=== PATIENT | male | born 1960 | race African-American/Black ===

== ENCOUNTER 2016-10-03 14:13 | Observation (INO) | payer MEDICARE, BC ==
--- NOTE | 2016-10-03 14:55 | ER Document Report ---
ED Cardiac - General Mode of Arrival: Medic Information source: Patient, Emergency Med Personnel, [facility] Records TRAVEL OUTSIDE OF THE [place] IN LAST 30 DAYS: No - HPI Patient complains to provider of: Other - chest pressure Quality of pain: Pressure Chest pain precipitating factors: At Rest Associated symptoms: None Exacerbated by: Denies Relieved by: Nothing Similar symptoms previously: Yes <LAKISHA OCHOA - Last Filed: 10/03/16 16:04> <MARY ANNE SOTELO - Last Filed: 10/03/16 18:03> - General Stated Complaint: CHEST PAIN Notes: Patient is a 55-year-old male that presents to the emergency department today with complaints of 2 days of chest pressure. Patient states he feels like someone is sitting on his chest. Patient states there is no real pain however it is just enough to "make him nervous". Patient has been seen in this emergency department before for similar complaints, with the last time being constipation. Patient states he is constipated currently, his last bowel movement was 1.5 weeks ago. (LAKISHA OCHOA) - Related Data Allergies/Adverse Reactions: No Known Drug Allergies Allergy (Unknown, Verified 01/14/16 13:24) Past Medical History - General Information source: Patient, [facility] Records - Social History Smoking Status: Never Smoker Cigarette use (# per day): No Frequency of alcohol use: None Drug Abuse: None Family History: Reviewed & Not Pertinent - Past Medical History Cardiac Medical History: Reports: Hx Atrial Fibrillation, Hx Coronary Artery Disease, Hx Heart Attack, Hx Hypercholesterolemia, Hx Hypertension, Hx Pulmonary Embolism Pulmonary Medical History: Reports: Hx Bronchitis Neurological Medical History: Reports: Hx Cerebrovascular Accident Endocrine Medical History: Reports: Hx Diabetes Mellitus Type 2 Musculoskeltal Medical History: Reports Hx Muscle Weakness Psychiatric Medical History: Reports: Hx Anxiety, Hx Depression Past Surgical History: Reports: Hx Internal Defibrillator, Hx Pacemaker - Immunizations Hx Diphtheria, Pertussis, Tetanus Vaccination: - unknown <LAKISHA OCHAO - Last Filed: 10/03/16 16:04> Review of Systems - Review of Systems Constitutional: No symptoms reported EENT: No symptoms reported Cardiovascular: See HPI, Chest pain Respiratory: No symptoms reported Gastrointestinal: See HPI, Constipation Genitourinary: No symptoms reported Male Genitourinary: No symptoms reported Musculoskeletal: No symptoms reported Skin: No symptoms reported Hematologic/Lymphatic: No symptoms reported Neurological/Psychological: See HPI, Anxiety -: Yes All other systems reviewed and negative <LAKISHA OCHOA - Last Filed: 10/03/16 16:04> Physical Exam - General General appearance: Alert In distress: None - HEENT Head: Normocephalic, Atraumatic Eyes: Normal Conjunctiva: Normal - Respiratory Chest status: Nontender Breath sounds: Normal Chest palpation: Other - port in right upper chest - Cardiovascular Rhythm: Regular Heart sounds: Normal auscultation Murmur: No - Abdominal Inspection: Obese Bowel sounds: Hyperactive Tenderness: Nontender - Extremities General upper extremity: Other - contractures to hands and wrists General lower extremity: Other - Thickened and discolored toenails bilaterally - Neurological Cognition: Normal Speech: Other - slow deliberate speech at baseline Motor strength normal: No: LUE, RUE, LLE, RLE - Psychological Associated symptoms: Normal affect, Normal mood - Skin Skin Temperature: Warm Skin Moisture: Dry Skin Color: Normal <LAKISHA OCHOA - Last Filed: 10/03/16 16:04> <MARY ANNE SOTELO - Last Filed: 10/03/16 18:03> - Vital signs Vitals: Resp Pulse Ox 16 99 10/03/16 15:27 10/03/16 15:27 (MARY ANNE SOTELO) - Neurological Notes: Quadriplegic at baseline, some digit movement which is baseline for patient. ( LAKISHA OCHOA) Course - Laboratory Result Diagrams: 10/03/16 15:20 10/03/16 15:20 <LAKISHA OCHOA - Last Filed: 10/03/16 16:04> - Laboratory Result Diagrams: 10/03/16 15:20 10/03/16 15:20 - Diagnostic Test Radiology reviewed: Image reviewed, Reports reviewed - Constipation - EKG Interpretation by Pr EKG shows normal: Sinus rhythm, Silvis, Intervals, QRS Complexes. abnormal: ST-T Waves - Diffuse abnormal T waves suggesting ischemia Rate: Normal - 54 Rhythm: NSR When compared to previous EKG there are: No significant change - Consults Dr. Agudelo Time consulted: 18:00 Consulted provider: will see as inpatient <MARY ANNE SOTELO - Last Filed: 10/03/16 18:03> - Vital Signs Vital signs: Temp Pulse Resp BP Pulse Ox 10 L 202/83 H 99 10/03/16 17:03 10/03/16 17:03 10/03/16 15:28 (MARY ANNE SOTELO) - Laboratory Laboratory results interpreted by me: 10/03/16 10/03/16 10/03/16 15:20 15:20 17:00 Hgb 11.0 L Hct 34.6 L MCV 79 L MCH 25.1 L MCHC 31.6 L Basophils % 2.2 H ALT 11 L Urine Protein 30 H Urine Nitrite POSITIVE H Ur Leukocyte Esterase LARGE H (MARY ANNE SOTELO) Discharge <LAKISHA OCHOA - Last Filed: 10/03/16 16:04> - Discharge Admitting Provider: [facility] Unit Admitted: Medical Floor <MARY ANNE SOTELO - Last Filed: 10/03/16 18:03> - Discharge Clinical Impression: Uncontrolled hypertension, Chronic atrial fibrillation, Has run out of medications, Quadriplegia and quadriparesis Chest pain Qualifiers: Chest pain type: other chest pain Qualified Code(s): R07.89 - Other chest pain Constipation Qualifiers: Constipation type: unspecified constipation type Qualified Code(s): K59.00 - Constipation, unspecified Condition: Good Disposition: ADMITTED INPATIENT Scribe Attestation: 10/03/16 18:03 I personally performed the services described in the documentation, reviewed and edited the documentation which was dictated to the scribe in my presence, and it accurately records my words and actions. (MARY ANNE SOTELO) Scribe Documentation - Scribe Written by Krishna:: Krishna Rendon, [id number] 10/03/16 acting as scribe for :: Alden <LAKISHA OCHOA - Last Filed: 10/03/16 16:04>
[2016-10-03 15:35] LABS: ABSOLUTE BASOPHILS # (AUTO) 0.1 10^3/uL (0.0-0.2); ABSOLUTE EOSINOPHILS # (AUTO) 0.1 10^3/uL (0.0-0.6); ABSOLUTE MONOCYTES (AUTO) 0.4 10^3/uL (0.1-1.4); ABSOLUTE NEUT (AUTO) 3.8 10^3/uL (1.7-8.2); BASOPHILS % (AUTO) 2.2 % (0-2); EOSINOPHILS % (AUTO) 1.8 % (0-6); HEMATOCRIT 34.6 % (37.9-51.0); HGB HCT DIFFERENCE -1.6; LYMPHOCYTES % (AUTO) 18.3 % (13-45); MEAN CORPUSCULAR HEMOGLOBIN 25.1 pg (27.0-33.4); MEAN CORPUSCULAR HGB CONC 31.6 g/dL (32.0-36.0); MEAN CORPUSCULAR VOLUME 79 fl (80-97); MONOCYTES % (AUTO) 7.9 % (3-13); RED BLOOD COUNT 4.37 10^6/uL (4.35-5.55); RED CELL DISTRIBUTION WIDTH 13.7 % (11.5-14.0); SEGMENTED NEUTROPHILS % (AUTO) 69.8 % (42-78); WHITE BLOOD COUNT 5.4 10^3/uL (4.0-10.5)
[2016-10-03] MEDS ORDERED: HYDRALAZINE HCL INJ/PF 20 MG/1 ML SDV IV ONE ×2 (15:38→17:25)
--- NOTE | 2016-10-03 15:46 | EKG REPORT ---
SEVERITY:- ABNORMAL ECG - SINUS BRADYCARDIA ABNORMAL T, CONSIDER ISCHEMIA, DIFFUSE LEADS : Confirmed by: Jaleel Coto 03-Oct-2016 15:46:09
[2016-10-03 15:49] LABS: PROTHROMBIN TIME 13.6 SEC (11.4-15.4)
[2016-10-03 15:51] LABS: ALANINE AMINOTRANSFERASE 11 U/L (21-72); ALBUMIN 3.5 g/dL (3.5-5.0); ALKALINE PHOSPHATASE 63 U/L (38-126); ANION GAP 9 (5-19); ASPARTATE AMINO TRANSFERASE 17 U/L (17-59); BILIRUBIN,TOTAL 1.1 mg/dL (0.2-1.3); BLOOD UREA NITROGEN 19 mg/dL (7-20); CALCIUM 8.7 mg/dL (8.4-10.2); CARBON DIOXIDE 25 mmol/L (22-30); CHLORIDE 107 mmol/L (98-107); CREATINE KINASE 69 U/L (55-170); CREATININE RESULT 0.73 mg/dL (0.52-1.25); GLUCOSE 81 mg/dL (75-110); MAGNESIUM 2.1 mg/dL (1.6-2.3); POTASSIUM 4.3 mmol/L (3.6-5.0); SODIUM 141.1 mmol/L (137-145)
[2016-10-03 16:07] LABS: CREATINE KINASE MB 0.57 ng/mL (<4.55); TROPONIN I 0.014 ng/mL
[2016-10-03] MEDS ORDERED: ENOXAPARIN SODIUM INJ 100 MG/1 ML DISP.SYRIN SUBCUT ONE (17:08)
[2016-10-03] MEDS ORDERED: WARFARIN SODIUM 5 MG TABLET PO ONE (17:11)
[2016-10-03 17:29] LABS: AMORPHOUS SEDIMENT,URINE TRACE /HPF; APPEARANCE,URINE SLIGHTLY-CLOUDY; BILIRUBIN,URINE NEGATIVE (NEGATIVE); GLUCOSE, URINE NEGATIVE (NEGATIVE); KETONES,URINE NEGATIVE (NEGATIVE); LEUKOCYTE ESTERASE,URINE LARGE (NEGATIVE); NITRITE,URINE POSITIVE (NEGATIVE); PROTEIN,URINE 30 mg/dL (NEGATIVE); URINE SPECIFIC GRAVITY 1.011; UROBILINOGEN,URINE NEGATIVE mg/dL (<2.0)
[2016-10-03] MEDS ORDERED: MINERAL OIL 30 ML UDCUP PR ONE (17:58)
[2016-10-03] MEDS ORDERED: CLONIDINE HCL 0.2 MG TABLET PO ONE (18:01)
--- NOTE | 2016-10-03 19:00 | EKG REPORT ---
SEVERITY:- ABNORMAL ECG - SINUS RHYTHM ABNORMAL T, CONSIDER ISCHEMIA, DIFFUSE LEADS : Confirmed by: Jaleel Coto 03-Oct-2016 18:59:42
[2016-10-03] MEDS ORDERED: DEXTROSE 50%-WATER 25 GM/50 ML DISP.SYRIN IV PRN ×2 (19:08)
[2016-10-03] MEDS ORDERED: INSULIN LISPRO 100 UNIT/ML 3 ML VIAL SUBCUT PRN (19:08)
[2016-10-03] MEDS ORDERED: DEXTROSE 40% GEL 15 GM TUBE PO PRN ×2 (19:08)
[2016-10-03] MEDS ORDERED: GLUCAGON,HUMAN RECOMB 1 MG INJ IM PRN (19:08)
[2016-10-03] MEDS ORDERED: WARFARIN SODIUM 5 MG TABLET PO SCH (22:00)
[2016-10-04] MEDS ORDERED: HYDRALAZINE HCL 25 MG TABLET PO ONE (00:30)
[2016-10-04 02:10] LABS: PROTHROMBIN TIME 13.7 SEC (11.4-15.4)
[2016-10-04] MEDS: HYDRALAZINE HCL 25 MG TABLET PO SCH ×3 (06:29→21:57)
[2016-10-04] MEDS ORDERED: CLONIDINE HCL 0.1 MG TABLET PO ONE (10:00)
[2016-10-04] MEDS ORDERED: CLONIDINE HCL 0.1 MG TABLET PO PRN ×2 (14:00)
--- NOTE | 2016-10-04 20:41 | PDOC H&P ---
History of Present Illness Admission Date/PCP: 10/03/16 18:59 History of Present Illness: BIRDIE MOSER JR is a 55 year old male, this patient is unfortunately poorly compliant, I saw for the first time in the office on 01/27/2016 when he presented to the office to establish with us, he was hospitalized in this hospital back in 12/24/2015 and he was discharged 01/08/2016. He spent approximately 14 days in the hospital at the time. The first time he presented to the office was the last time I saw him, he was supposed to return to the office in a week, but he never did. He came to the emergency room with many complaints including chest pain, constipation, he also said he came to the emergency room because he ran out of medications. Patient had CVA residual dysphasia and quadriparesis, he has had multiple CVA in the past. He was supposed to be on warfarin the indication for the warfarin is not clear. So clearly he has not been taking his medication on a regular basis. He nursing staff and the pharmacy of this hospital called the pharmacy of record and it was indicated that he has not filled his prescriptions in over one year. Patient also indicated from talking to him that the medication is a mail-order. I reviewed my office notes when he came to establish the office back on 2015 Coumadin was not listed as one of his medications Past Medical History Cardiac Medical History: Reports: Atrial Fibrillation, Coronary Artery Disease, Myocardial Infarction, Hyperlipidema, Hypertension, Pulmonary Embolism Pulmonary Medical History: Reports: Bronchitis Endocrine Medical History: Reports: Diabetes Mellitus Type 2 Psychiatric Medical History: Reports: Depression Past Surgical History Past Surgical History: Reports: Internal Defibrillator, Pacemaker Social History Smoking Status: Never Smoker Frequency of Alcohol Use: None Hx Recreational Drug Use: No Drugs: None Hx Prescription Drug Abuse: No Family History Family History: Reviewed & Not Pertinent Parental Family History Reviewed: Yes Children Family History Reviewed: Yes Sibling(s) Family History Reviewed.: Yes Medication/Allergy Home Medications: No Home Medications 10/04/16 Allergies/Adverse Reactions: No Known Drug Allergies Allergy (Unknown, Verified 01/14/16 13:24) Physical Exam Vital Signs: Temp Pulse Resp BP Pulse Ox 98.5 F 55 L 18 112/62 99 10/04/16 16:47 10/04/16 16:47 10/04/16 16:47 10/04/16 16:47 10/04/16 16:47 Intake & Output 10/03/16 10/04/16 10/05/16 06:59 06:59 06:59 Intake Total 400 350 Output Total 900 500 Balance -500 -150 Weight 87 kg General appearance: PRESENT: no acute distress Eye exam: PRESENT: PERRLA Respiratory exam: PRESENT: decreased breath sounds Cardiovascular exam: PRESENT: +S1, +S2 GI/Abdominal exam: PRESENT: soft Neurological exam: PRESENT: alert, other - dysphasis with flaccid quadriparesis Results Impressions: Acute Abdomen Series 10/03/16 14:55 IMPRESSION: Constipation with nonspecific increase in bowel gas and fecal material. Assessment & Plan - Diagnosis (1) Chest pain Qualifiers: Chest pain type: unspecified Qualified Code(s): R07.9 - Chest pain, unspecified Is this a current diagnosis for this admission?: YesPlan: Patient is admitted for evaluation (2) Constipation Qualifiers: Constipation type: unspecified constipation type Qualified Code(s): K59.00 - Constipation, unspecified Is this a current diagnosis for this admission?: Yes (3) Chronic atrial fibrillation Is this a current diagnosis for this admission?: YesPlan: It is not safe to prescribe warfarin for this patient because he is extremely noncompliant, he does not check his INR on a regular basis on that we increase the chance of complications from warfarin, he will be started on one of the new anticoagulants (4) Constipation Qualifiers: Constipation type: unspecified constipation type Qualified Code(s): K59.00 - Constipation, unspecified (5) Has run out of medications Is this a current diagnosis for this admission?: YesPlan: The blood pressure is not controlled. Apparently he has not been compliant we will restart medication from the scratch, we will get discharge planning involved for placement (6) Quadriplegia and quadriparesis Is this a current diagnosis for this admission?: Yes (7) AVNRT (AV flaca re-entry tachycardia) Is this a current diagnosis for this admission?: Yes (8) Bradycardia Is this a current diagnosis for this admission?: Yes (9) Chest pain Qualifiers: Chest pain type: other chest pain Qualified Code(s): R07.89 - Other chest pain; R07.8 - Other chest pain Is this a current diagnosis for this admission?: Yes (10) History of cerebrovascular accident Is this a current diagnosis for this admission?: Yes (11) History of myocardial infarction Is this a current diagnosis for this admission?: Yes (12) Hypertensive emergency Is this a current diagnosis for this admission?: Yes
[2016-10-04] MEDS ORDERED: LISINOPRIL 10 MG TABLET PO ONE (21:30)
[2016-10-04] MEDS ORDERED: APIXABAN 5 MG TABLET PO ONE (21:30)
[2016-10-05] MEDS ORDERED: INFLUENZA ADLT QUAD (36MOS+) 2016-17 VAC 0.5 ML SYR IM PRN (04:35)
[2016-10-05] MEDS: HYDRALAZINE HCL 25 MG TABLET PO SCH ×3 (06:14→23:42)
[2016-10-05] MEDS: APIXABAN 5 MG TABLET PO SCH ×2 (09:16→17:14)
[2016-10-05] MEDS: LISINOPRIL 10 MG TABLET PO SCH (09:16)
[2016-10-05 11:15] LABS: APPEARANCE,URINE SLIGHTLY-CLOUDY; BILIRUBIN,URINE NEGATIVE (NEGATIVE); GLUCOSE, URINE NEGATIVE (NEGATIVE); KETONES,URINE NEGATIVE (NEGATIVE); LEUKOCYTE ESTERASE,URINE LARGE (NEGATIVE); NITRITE,URINE POSITIVE (NEGATIVE); PROTEIN,URINE NEGATIVE (NEGATIVE); URINE SPECIFIC GRAVITY 1.008; UROBILINOGEN,URINE NEGATIVE mg/dL (<2.0)
[2016-10-05] MEDS: CIPROFLOXACIN 400 MG/D5W RTU 400 MG/200 ML RTUPB IV SCH (17:14)
[2016-10-06] MEDS: HYDRALAZINE HCL 25 MG TABLET PO SCH ×3 (05:21→21:50)
[2016-10-06] MEDS: CIPROFLOXACIN 400 MG/D5W RTU 400 MG/200 ML RTUPB IV SCH ×2 (05:22→17:47)
[2016-10-06] MEDS: LISINOPRIL 10 MG TABLET PO SCH (10:00)
[2016-10-06] MEDS: APIXABAN 5 MG TABLET PO SCH ×2 (10:00→17:47)
--- NOTE | 2016-10-06 19:56 | PDOC DISCHARGE SUMMARY ---
General - Admit/Disc Date/PCP Admission Date/Primary Care Provider: 10/03/16 18:59 Discharge Date: 10/06/16 - Discharge Diagnosis (1) Chest pain Is this a current diagnosis for this admission?: Yes (2) Constipation Is this a current diagnosis for this admission?: Yes (3) Chronic atrial fibrillation Is this a current diagnosis for this admission?: Yes (4) Constipation Is this a current diagnosis for this admission?: Yes (5) Has run out of medications Is this a current diagnosis for this admission?: Yes (6) Quadriplegia and quadriparesis Is this a current diagnosis for this admission?: Yes (7) AVNRT (AV flaca re-entry tachycardia) Is this a current diagnosis for this admission?: Yes (8) Bradycardia Is this a current diagnosis for this admission?: Yes (9) Chest pain Is this a current diagnosis for this admission?: Yes (10) History of cerebrovascular accident Is this a current diagnosis for this admission?: Yes (11) History of myocardial infarction Is this a current diagnosis for this admission?: Yes (12) Hypertensive emergency Is this a current diagnosis for this admission?: Yes - Additional Information Discharge Diet: As Tolerated Home Medications: Apixaban [Eliquis 5 mg Tablet] 5 mg PO BID #60 tablet 10/06/16 Clonidine HCl [Catapres 0.1 mg Tablet] 0.1 mg PO Q8HP PRN #90 tablet 10/06/16 Hydralazine HCl [Apresoline 25 mg Tablet] 25 mg PO Q8 #90 tablet 10/06/16 Lisinopril [Prinivil 10 mg Tablet] 40 mg PO Q12 #60 tablet 10/06/16 History of Present Illness History of Present Illness: BIRDIE MOSER JR is a 55 year old male, this patient is unfortunately poorly compliant, I saw for the first time in the office on 01/27/2016 when he presented to the office to establish with us, he was hospitalized in this hospital back in 12/24/2015 and he was discharged 01/08/2016. He spent approximately 14 days in the hospital at the time. The first time he presented to the office was the last time I saw him, he was supposed to return to the office in a week, but he never did. He came to the emergency room with many complaints including chest pain, constipation, he also said he came to the emergency room because he ran out of medications. Patient had CVA residual dysphasia and quadriparesis, he has had multiple CVA in the past. He was supposed to be on warfarin the indication for the warfarin is not clear. So clearly he has not been taking his medication on a regular basis. He nursing staff and the pharmacy of this hospital called the pharmacy of record and it was indicated that he has not filled his prescriptions in over one year. Patient also indicated from talking to him that the medication is a mail-order. I reviewed my office notes when he came to establish the office back on 2015 Coumadin was not listed as one of his medications Hospital Course Hospital Course: Patient was admitted for observation, he came in because of chest pain, constipation and because he ran out of his medication. He was evaluated and treated in the hospital, he was supposed to be on warfarin but he is not compliant and it is also very risky to continue him on warfarin because he does not check his PT/INR, he was started on eliquis and he will continue same. The blood pressure was not controlled and his medications were adjusted, he also had constipation and this was treated with enema with very good results. Physical Exam Vital Signs: Temp Pulse Resp BP Pulse Ox 98.2 F 63 18 190/80 H 100 10/06/16 15:32 10/06/16 15:32 10/06/16 15:32 10/06/16 15:32 10/06/16 15:32 Intake & Output 10/05/16 10/06/16 10/07/16 06:59 06:59 06:59 Intake Total 690 935 800 Output Total 1300 1100 1600 Balance -610 165 800 Weight 87 kg 87 kg General appearance: PRESENT: no acute distress Eye exam: PRESENT: PERRLA Respiratory exam: PRESENT: clear to auscultation robyn Cardiovascular exam: PRESENT: +S1, +S2 Results Impressions: Acute Abdomen Series 10/03/16 14:55 IMPRESSION: Constipation with nonspecific increase in bowel gas and fecal material.
[2016-10-07] MEDS: HYDRALAZINE HCL 25 MG TABLET PO SCH ×2 (05:48→13:56)
[2016-10-07] MEDS: CIPROFLOXACIN 400 MG/D5W RTU 400 MG/200 ML RTUPB IV SCH (05:49)
[2016-10-07] MEDS: LISINOPRIL 10 MG TABLET PO SCH (10:14)
[2016-10-07] MEDS: APIXABAN 5 MG TABLET PO SCH (10:14)
[2016-10-07 15:19] VITALS: BP 182/77
[2016-10-07] MEDS ORDERED: CIPROFLOXACIN HCL 500 MG TABLET PO SCH (18:00)
== END 2016-10-07 17:20 | disposition home or self-care (01) ==
LOC: ER 14:13 → UNDOADMOB 18:14 → EH 18:14 → 5 23:00
PROVIDERS: ADMIT Internal Medicine; ATTEND Internal Medicine
DX: R07.9 Chest pain, unspecified (principal); K59.00 Constipation, unspecified; I48.2 Chronic atrial fibrillation; Z79.01 Long term (current) use of anticoagulants; I47.1 Supraventricular tachycardia; I69.365 Other paralytic syndrome following cerebral infarction, bilateral; G82.50 Quadriplegia, unspecified; I69.321 Dysphasia following cerebral infarction; R00.1 Bradycardia, unspecified; I25.2 Old myocardial infarction; I16.1 Hypertensive emergency; I10 Essential (primary) hypertension; I25.10 Atherosclerotic heart disease of native coronary artery without angina pectoris; E78.5 Hyperlipidemia, unspecified; Z86.711 Personal history of pulmonary embolism; E11.9 Type 2 diabetes mellitus without complications; F32.9 Major depressive disorder, single episode, unspecified; Z95.810 Presence of automatic (implantable) cardiac defibrillator
CPT/HCPCS: 93005; 96376; 99285; 96374; 96375; 36415; 87086; 82553; 82962 ×5; 82550; 83735; 85025; 85610 ×2; 87088; 80053; 81001 ×2; 84484; 87186; 74022; 93010; G0378 ×6; A9270 ×14; J0360; J3490; J0744 ×3; J1650; J1642 ×3

== ENCOUNTER → 2017-01-18 | Outpatient (CLI) | payer MEDICARE, BC | LOC: OD 13:54 | PROVIDERS: ATTEND Family Medicine | DX: I63.9 Cerebral infarction, unspecified (principal); Z53.29 Procedure and treatment not carried out because of patient's decision for other reasons ==

== ENCOUNTER 2017-02-01 14:55 | Emergency (ER) | payer MEDICARE, BC ==
[2017-02-01] MEDS ORDERED: NORMAL SALINE 1000 ML 1,000 ML IV ONE (15:18)
--- NOTE | 2017-02-01 15:44 | RADIOLOGY REPORT (SQ) ---
EXAM DESCRIPTION: CT HEAD WITHOUT COMPLETED DATE/TIME: 02/01/2017 3:29 pm REASON FOR STUDY: right sided numbness x3 days hx cva COMPARISON: 03/02/2016 TECHNIQUE: Axial images acquired through the brain without intravenous contrast. Images reviewed wi th bone, brain and subdural windows. Images stored on PACS. All CT scanners at this facility use dose modulation, iterative reconstruction, and/or weight based d osing when appropriate to reduce radiation dose to as low as reasonably achievable (ALARA). [facility]: Dose Right [facility]: CareDose [facility]: Dose Right [facility]: Teradose 4D [facility]: [employer] RADIATION DOSE: 64.61mGy. LIMITATIONS: None. FINDINGS: VENTRICLES: Prominent. CEREBRUM: No masses. No hemorrhage. No midline shift. Areas of low density in the white matter mos t likely due to chronic micro-vascular ischemic change. No evidence for acute infarction. CEREBELLUM: No masses. No hemorrhage. No alteration of density. No evidence for acute infarction. EXTRAAXIAL SPACES: Age-related involutional change. No fluid collections. No masses. ORBITS AND GLOBE: No intra- or extraconal masses. Normal contour of globe without masses. CALVARIUM: No fracture. PARANASAL SINUSES: No fluid or mucosal thickening. SOFT TISSUES: No mass or hematoma. OTHER: No other significant finding. IMPRESSION: CHRONIC CHANGES OF ATROPHY AND MICROVASCULAR ISCHEMIA. NO ACUTE PROCESS. TECHNICAL DOCUMENTATION: JOB ID: [id number] Quality ID # [id number]: Final reports with documentation of one or more dose reduction techniques (e.g., Au tomated exposure control, adjustment of the mA and/or kV according to patient size, use of iterative reconstruction technique) 2010 [employer]- All Rights Reserved
[2017-02-01 16:07] LABS: ABSOLUTE BASOPHILS # (AUTO) 0.1 10^3/uL (0.0-0.2); ABSOLUTE EOSINOPHILS # (AUTO) 0.1 10^3/uL (0.0-0.6); ABSOLUTE LYMPHOCYTES (AUTO) 0.9 10^3/uL (0.5-4.7); ABSOLUTE MONOCYTES (AUTO) 0.6 10^3/uL (0.1-1.4); ABSOLUTE NEUT (AUTO) 5.2 10^3/uL (1.7-8.2); BASOPHILS % (AUTO) 1.2 % (0-2); EOSINOPHILS % (AUTO) 1.5 % (0-6); HEMATOCRIT 37.2 % (37.9-51.0); HEMOGLOBIN 11.9 g/dL (13.5-17.0); HGB HCT DIFFERENCE -1.5; LYMPHOCYTES % (AUTO) 12.8 % (13-45); MEAN CORPUSCULAR HEMOGLOBIN 24.9 pg (27.0-33.4); MEAN CORPUSCULAR HGB CONC 32.1 g/dL (32.0-36.0); MEAN CORPUSCULAR VOLUME 78 fl (80-97); MONOCYTES % (AUTO) 8.2 % (3-13); RED BLOOD COUNT 4.78 10^6/uL (4.35-5.55); RED CELL DISTRIBUTION WIDTH 13.3 % (11.5-14.0); SEGMENTED NEUTROPHILS % (AUTO) 76.3 % (42-78); WHITE BLOOD COUNT 6.8 10^3/uL (4.0-10.5)
[2017-02-01 16:12] LABS: PROTHROMBIN TIME 13.5 SEC (11.4-15.4)
[2017-02-01 16:13] LABS: PARTIAL THROMBOPLASTIN TIME 28.2 SEC (23.5-35.8)
--- NOTE | 2017-02-01 16:15 | RADIOLOGY REPORT (SQ) ---
EXAM DESCRIPTION: KUB/ABDOMEN (SINGLE VIEW) COMPLETED DATE/TIME: 02/01/2017 3:40 pm REASON FOR STUDY: constipation COMPARISON: 10/03/2016 NUMBER OF VIEWS: One view. TECHNIQUE: Supine radiographic image of the abdomen acquired. LIMITATIONS: None. FINDINGS: BOWEL GAS PATTERN: Normal bowel gas pattern. No dilated loops. There is only a small amou nt of fecal material primarily located in the rectum. No evidence constipation. CALCIFICATIONS: 2 stones in the right kidney largest measuring 9 mm. Multiple stable calcifications in the pelvis likely phleboliths. SOFT TISSUES: No gross mass or suggestion of organomegaly. HARDWARE: None in the abdomen. BONES: No acute fracture. No worrisome bone lesions. OTHER: No other significant finding. IMPRESSION: Right nephrolithiasis without evidence of acute abnormality. TECHNICAL DOCUMENTATION: JOB ID: [id number] [employer]- All Rights Reserved
[2017-02-01 16:16] LABS: ALANINE AMINOTRANSFERASE 22 U/L (21-72); ALBUMIN 3.7 g/dL (3.5-5.0); ALKALINE PHOSPHATASE 77 U/L (38-126); ANION GAP 9 (5-19); ASPARTATE AMINO TRANSFERASE 20 U/L (17-59); BILIRUBIN,DIRECT 0.2 mg/dL (0.0-0.4); BILIRUBIN,TOTAL 1.2 mg/dL (0.2-1.3); BLOOD UREA NITROGEN 18 mg/dL (7-20); CALCIUM 8.9 mg/dL (8.4-10.2); CARBON DIOXIDE 25 mmol/L (22-30); CHLORIDE 105 mmol/L (98-107); CREATININE RESULT 0.79 mg/dL (0.52-1.25); GLUCOSE 77 mg/dL (75-110); LIPASE 31.8 U/L (23-300); MAGNESIUM 2.1 mg/dL (1.6-2.3); POTASSIUM 4.7 mmol/L (3.6-5.0); SODIUM 138.9 mmol/L (137-145); TOTAL PROTEIN 7.6 g/dL (6.3-8.2)
--- NOTE | 2017-02-01 18:25 | ER Document Report ---
ED General - General Chief Complaint: Ear Pain Stated Complaint: WEAKNESS Time Seen by Provider: 02/01/17 15:06 TRAVEL OUTSIDE OF THE [place] IN LAST 30 DAYS: No - HPI Patient complains to provider of: Generalized weakness paresthesias left ear pain Notes: Patient is coming in for evaluation of left ear pain numbness and tingling in the right arm and generalized weakness. Patient apparently is a quadriplegic patient states she had a history of strokes twice in the past does affect his speech. Patient states symptoms ongoing for approximately 3 days. Patient denies any fevers or chills. Patient also states he has not had a bowel movement recently. Denies any urinary difficulty. - Related Data Allergies/Adverse Reactions: No Known Drug Allergies Allergy (Unknown, Verified 01/14/16 13:24) Past Medical History - Social History Smoking Status: Never Smoker Chew tobacco use (# tins/day): No Frequency of alcohol use: None Drug Abuse: None Family History: Reviewed & Not Pertinent Patient has suicidal ideation: No Patient has homicidal ideation: No - Past Medical History Cardiac Medical History: Reports: Hx Atrial Fibrillation, Hx Coronary Artery Disease, Hx Heart Attack, Hx Hypercholesterolemia, Hx Hypertension, Hx Pulmonary Embolism Pulmonary Medical History: Reports: Hx Bronchitis Neurological Medical History: Reports: Hx Cerebrovascular Accident Endocrine Medical History: Reports: Hx Diabetes Mellitus Type 2 Renal/ Medical History: Denies: Hx Peritoneal Dialysis Musculoskeltal Medical History: Reports Hx Muscle Weakness Psychiatric Medical History: Reports: Hx Anxiety, Hx Depression Past Surgical History: Reports: Hx Internal Defibrillator, Hx Pacemaker - Immunizations Hx Diphtheria, Pertussis, Tetanus Vaccination: - unknown Review of Systems - Review of Systems Constitutional: Other - As weakness numbness and tingling on the right side constipation left ear pain EENT: No symptoms reported Cardiovascular: No symptoms reported Respiratory: No symptoms reported Gastrointestinal: No symptoms reported Genitourinary: No symptoms reported Male Genitourinary: No symptoms reported Musculoskeletal: No symptoms reported Skin: No symptoms reported Hematologic/Lymphatic: No symptoms reported Neurological/Psychological: No symptoms reported -: Yes All other systems reviewed and negative Physical Exam - Vital signs Vitals: Temp Pulse Resp BP Pulse Ox 98.5 F 69 16 191/85 H 98 02/01/17 15:02 02/01/17 15:02 02/01/17 15:02 02/01/17 15:02 02/01/17 15:02 Interpretation: Normal - General General appearance: Appears well, Alert - HEENT Head: Normocephalic, Atraumatic Eyes: Normal Conjunctiva: Normal Cornea: Normal Pupils: PERRL Ears: Normal External canal: Cerumen impaction - Left cerumen impaction Tympanic membrane: Normal Sinus: Normal Neck: Normal - Respiratory Respiratory status: No respiratory distress Chest status: Nontender Breath sounds: Normal Chest palpation: Normal - Cardiovascular Rhythm: Regular Heart sounds: Normal auscultation Murmur: No - Abdominal Inspection: Normal Distension: No distension Bowel sounds: Normal Tenderness: Nontender Organomegaly: No organomegaly - Back Back: Normal, Nontender - Extremities General upper extremity: Normal inspection, Nontender, Other - Patient able to feel tension on both sides. Sensation looks to be intact. General lower extremity: Normal inspection, Nontender, Normal color, Normal ROM , Other - Able to feel pinching on the distal extremity - Neurological Neuro grossly intact: Yes Cognition: Normal Orientation: AAOx4 Tabitha Coma Scale Eye Opening: Spontaneous [place] Coma Scale Verbal: Oriented Tabitha Coma Scale Motor: Obeys Commands [place] Coma Scale Total: 15 Speech: Normal Motor strength normal: LUE, RUE, LLE, RLE Sensory: Normal - Psychological Associated symptoms: Normal affect, Normal mood - Skin Skin Temperature: Warm Skin Moisture: Dry Skin Color: Normal Course - Re-evaluation Re-evalutation: 02/01/17 22:15 No clear etiology for the patient's symptoms of weakness. CT head was negative for any acute changes. Electrolytes showed no imbalance. Examination does show a cerumen impaction patient will be discharged home patient agrees with plan - Vital Signs Vital signs: Temp Pulse Resp BP Pulse Ox 98.1 F 69 18 210/93 H 100 02/01/17 19:58 02/01/17 15:02 02/01/17 19:58 02/01/17 19:58 02/01/17 20:00 - Laboratory Result Diagrams: 02/01/17 15:57 02/01/17 15:57 Laboratory results interpreted by me: 02/01/17 15:57 Hgb 11.9 L Hct 37.2 L MCV 78 L MCH 24.9 L Lymphocytes % 12.8 L Discharge - Discharge Clinical Impression: Paresthesias, Impacted cerumen of left ear Constipation Qualifiers: Constipation type: unspecified constipation type Qualified Code(s): K59.00 - Constipation, unspecified Condition: Good Disposition: HOME, SELF-CARE Instructions: Cerumen Impaction ([facility]), Numbness or Paresthesia ([facility]), Constipation ([facility]) Additional Instructions: Lab work and your CT of your head did not show any significant pathology. Please take the medication as prescribed for your wax impaction and your constipation Prescriptions: Carbamide Peroxide [Debrox 6.5 % Otic Drops 15 ml] 10 drop OT TID #1 bottle Sennosides/Docusate Sodium [Senna-S Tablet] 1 each PO BID #30 tablet Referrals: ELOISA CADENA MD [Primary Care Provider] - Follow up in 3-5 days
[2017-02-01 20:21] VITALS: BP 210/93
== END 2017-02-01 20:22 | disposition home or self-care (01) ==
LOC: ER 14:55
DX: R20.0 Anesthesia of skin (principal); H61.22 Impacted cerumen, left ear; K59.00 Constipation, unspecified; H92.02 Otalgia, left ear; R53.1 Weakness
CPT/HCPCS: 36591; 99284; 36415; 83690; 83735; 85025; 85610; 85730; 80053; 74000; 70450; J7030

== ENCOUNTER 2017-04-11 11:47 | Emergency (ER) | payer MEDICARE, BC ==
--- NOTE | 2017-04-11 13:07 | ER Document Report ---
ED General - General Chief Complaint: Leg Pain Stated Complaint: ARM AND LEG PAIN Time Seen by Provider: 04/11/17 11:55 Mode of Arrival: Medic Information source: Patient Notes: 56-year-old male dialysis patient presents with 2 separate complaints. Patient admits to generalized body aches states his bilateral lower extremities are swollen and he is concerned about blood clots. 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 Patient also admits that he has been constipated for the past 2 weeks. Patient denies any shortness breath difficulty breathing patient was at dialysis Patient notes his constipation is his main concern but had called EMS for the pain in his legs TRAVEL OUTSIDE OF THE [place] IN LAST 30 DAYS: No - HPI Onset: Last week Onset/Duration: Persistent Quality of pain: Achy Severity: Mild Pain Level: 1 Associated symptoms: Other Exacerbated by: Denies Relieved by: Denies Similar symptoms previously: Yes Recently seen / treated by doctor: Yes - Related Data Allergies/Adverse Reactions: No Known Drug Allergies Allergy (Unknown, Verified 04/11/17 11:58) Past Medical History - Social History Smoking Status: Never Smoker Cigarette use (# per day): No Chew tobacco use (# tins/day): No Smoking Education Provided: No Frequency of alcohol use: None Drug Abuse: None Family History: Reviewed & Not Pertinent - Past Medical History Cardiac Medical History: Reports: Hx Atrial Fibrillation, Hx Coronary Artery Disease, Hx Heart Attack, Hx Hypercholesterolemia, Hx Hypertension, Hx Pulmonary Embolism Pulmonary Medical History: Reports: Hx Bronchitis Neurological Medical History: Reports: Hx Cerebrovascular Accident Endocrine Medical History: Reports: Hx Diabetes Mellitus Type 2 Renal/ Medical History: Denies: Hx Peritoneal Dialysis Musculoskeltal Medical History: Reports Hx Muscle Weakness Psychiatric Medical History: Reports: Hx Anxiety, Hx Depression Past Surgical History: Reports: Hx Internal Defibrillator, Hx Pacemaker - Immunizations Hx Diphtheria, Pertussis, Tetanus Vaccination: - unknown Review of Systems - Review of Systems Notes: REVIEW OF SYSTEMS: CONSTITUTIONAL : Denies fever, chills, or sweats. Denies recent illness. EENT: Denies eye, ear, throat, or mouth pain or symptoms. Denies nasal or sinus congestion or discharge. Denies throat, tongue, or mouth swelling or difficulty swallowing. CARDIOVASCULAR: Denies chest pain. Denies palpitations or racing or irregular heart beat. Denies ankle edema. RESPIRATORY: Denies cough, cold, or chest congestion. Denies shortness of breath, difficulty breathing, or wheezing. GASTROINTESTINAL: Admits to abdominal pain constipation. GENITOURINARY: Denies difficulty urinating, painful urination, burning, frequency, blood in urine, or discharge. MUSCULOSKELETAL: Admits to bilateral lower extremity edema cramping SKIN: Denies rash, lesions or sores. HEMATOLOGIC : Denies easy bruising or bleeding. LYMPHATIC: Denies swollen, enlarged glands. NEUROLOGICAL: Denies confusion or altered mental status. Denies passing out or loss of consciousness. Denies dizziness or lightheadedness. Denies headache. Denies weakness or paralysis or loss of use of either side. Denies problems with gait or speech. Denies sensory loss, numbness, or tingling. Denies seizures. PSYCHIATRIC: Denies anxiety or stress. Denies depression, suicidal ideation, or homicidal ideation. ALL OTHER SYSTEMS REVIEWED AND NEGATIVE. Dictation was performed using [employer] voice recognition software PHYSICAL EXAMINATION: GENERAL: Well-appearing, well-nourished and in no acute distress. HEAD: Atraumatic, normocephalic. EYES: Pupils equal round and reactive to light, extraocular movements intact, sclera anicteric, conjunctiva are normal. ENT: Nares patent, oropharynx clear without exudates. Moist mucous membranes. NECK: Normal range of motion, supple without lymphadenopathy LUNGS: Breath sounds clear to auscultation bilaterally and equal. No wheezes rales or rhonchi. HEART: Regular rate and rhythm without murmurs ABDOMEN: Soft, nontender, nondistended abdomen. No guarding, no rebound. No masses appreciated. Musculoskeletal: Bilateral lower extremity edema NEUROLOGICAL: Cranial nerves grossly intact. Normal speech, normal gait. Normal sensory, motor exams PSYCH: Normal mood, normal affect. SKIN: Warm, Dry, normal turgor, no rashes or lesions noted. Physical Exam - Vital signs Vitals: Temp Pulse Resp BP Pulse Ox 98.5 F 63 18 203/87 H 99 04/11/17 11:57 04/11/17 11:57 04/11/17 11:57 04/11/17 11:57 04/11/17 11:57 Course - Re-evaluation Re-evalutation: 04/11/17 13:08 Labwork imaging is pending at this time, patient insists on having an enema and I believe this is the real reason why he is here however I will Doppler his lower extremities given his extensive history 04/11/17 14:36 Patient does have positive DVT in the lower extremity, patient states he was taken off Eliquis by Dr. Cadena. I do not understand why someone would be taken off his blood thinner as I did contact on-call for Dr. Cadena who is Dr. Bedolla request I placed the patient back on Eliquis I believe discharge is appropriate at this time After performing a Medical Screening Examination, I estimate there is LOW risk for ACUTE CORONARY SYNDROME, RESPIRATORY FAILURE, SEPSIS OR MENINGITIS, thus I consider the discharge disposition reasonable. I have reevaluated this patient multiple times and no significant life threatening changes are noted. The patient and I have discussed the diagnosis and risks, and we agree with discharging home with close follow-up. We also discussed returning to the Emergency Department immediately if new or worsening symptoms occur. We have discussed the symptoms which are most concerning (e.g., changing or worsening pain, trouble swallowing or breathing, neck stiffness, fever) that necessitate immediate return. - Vital Signs Vital signs: Temp Pulse Resp BP Pulse Ox 98.5 F 63 18 203/87 H 99 04/11/17 11:57 04/11/17 11:57 04/11/17 11:57 04/11/17 11:57 04/11/17 11:57 - Laboratory Result Diagrams: 04/11/17 12:40 04/11/17 12:40 Laboratory results interpreted by me: 04/11/17 04/11/17 12:40 12:40 Hgb 11.3 L Hct 35.2 L MCV 79 L MCH 25.5 L RDW 15.0 H Monocytes % 14.6 H AST 16 L ALT 17 L - Diagnostic Test Radiology reviewed: Image reviewed, Reports reviewed - Positive DVT Discharge - Discharge Clinical Impression: Deep venous thrombosis of both lower extremities Qualifiers: Affected thrombotic vein of extremity: unspecified vein of extremity Chronicity : acute Qualified Code(s): I82.403 - Acute embolism and thrombosis of unspecified deep veins of lower extremity, bilateral Constipation Qualifiers: Constipation type: unspecified constipation type Qualified Code(s): K59.00 - Constipation, unspecified Condition: Stable Disposition: HOME, SELF-CARE Instructions: DVT Outpatient Treatment ([facility]) Prescriptions: Apixaban [Eliquis 5 mg Tablet] 10 mg PO BID #14 tablet Referrals: ELOISA CADENA MD [ACTIVE STAFF] - Follow up tomorrow
[2017-04-11 13:09] LABS: ABSOLUTE BASOPHILS # (AUTO) 0.1 10^3/uL (0.0-0.2); ABSOLUTE EOSINOPHILS # (AUTO) 0.1 10^3/uL (0.0-0.6); ABSOLUTE LYMPHOCYTES (AUTO) 0.7 10^3/uL (0.5-4.7); ABSOLUTE MONOCYTES (AUTO) 0.8 10^3/uL (0.1-1.4); ABSOLUTE NEUT (AUTO) 3.8 10^3/uL (1.7-8.2); BASOPHILS % (AUTO) 1.6 % (0-2); EOSINOPHILS % (AUTO) 2.7 % (0-6); HEMATOCRIT 35.2 % (37.9-51.0); HEMOGLOBIN 11.3 g/dL (13.5-17.0); HGB HCT DIFFERENCE -1.3; MEAN CORPUSCULAR HEMOGLOBIN 25.5 pg (27.0-33.4); MEAN CORPUSCULAR HGB CONC 32.2 g/dL (32.0-36.0); MEAN CORPUSCULAR VOLUME 79 fl (80-97); MONOCYTES % (AUTO) 14.6 % (3-13); RED BLOOD COUNT 4.45 10^6/uL (4.35-5.55); SEGMENTED NEUTROPHILS % (AUTO) 68.1 % (42-78); WHITE BLOOD COUNT 5.5 10^3/uL (4.0-10.5)
[2017-04-11 13:28] LABS: ALANINE AMINOTRANSFERASE 17 U/L (21-72); ALBUMIN 3.5 g/dL (3.5-5.0); ALKALINE PHOSPHATASE 74 U/L (38-126); ANION GAP 10 (5-19); ASPARTATE AMINO TRANSFERASE 16 U/L (17-59); BILIRUBIN,DIRECT 0.3 mg/dL (0.0-0.4); BILIRUBIN,TOTAL 1.2 mg/dL (0.2-1.3); BLOOD UREA NITROGEN 14 mg/dL (7-20); CALCIUM 8.6 mg/dL (8.4-10.2); CARBON DIOXIDE 24 mmol/L (22-30); CHLORIDE 106 mmol/L (98-107); CREATINE KINASE 73 U/L (55-170); CREATININE RESULT 0.73 mg/dL (0.52-1.25); GLUCOSE 89 mg/dL (75-110); POTASSIUM 4.2 mmol/L (3.6-5.0); SODIUM 140.4 mmol/L (137-145); TOTAL PROTEIN 7.3 g/dL (6.3-8.2)
[2017-04-11] MEDS ORDERED: NA PHOS,M-B/NA PHOS,DI-BA (ADULT) 133 ML ENEMA PR ONE (13:40)
[2017-04-11] MEDS ORDERED: APIXABAN 5 MG TABLET PO ONE (14:48)
--- NOTE | 2017-04-11 14:51 | RADIOLOGY REPORT (SQ) ---
EXAM DESCRIPTION: VENOUS BILATERAL LOWER COMPLETED DATE/TIME: 04/11/2017 2:42 pm REASON FOR STUDY: bilateral lower extremity edema, hx of dvt COMPARISON: None. TECHNIQUE: Dynamic and static quinonez scale and color images acquired of both lower extremity venous sy stems. Selected spectral images acquired with additional compression and augmentation maneuvers. Imag es stored on PACS. LIMITATIONS: None. FINDINGS: RIGHT LEG COMMON FEMORAL AND FEMORAL: Normal phasicity, compression and augmentation. No visualized echogenic m aterial on quinonez scale. No defects on color images. POPLITEAL: Normal compression and augmentation. No visualized echogenic material on quinonez scale. No de fects on color images. CALF VESSELS: Normal compression and augmentation. No visualized echogenic material on quinonez scale. No defects on color image. GSV AND SSV: Normal compression. No visualized echogenic material on quinonez scale. No defects on color images. ANY DEEP VENOUS INSUFFICIENCY: Not evaluated. ANY EVIDENCE OF POPLITEAL CYST: No. OTHER: No other significant finding. LEFT LEG COMMON FEMORAL AND FEMORAL: Thrombus in the common femoral and femoral vein. Unable to visualize the mid and distal femoral vein due to a soft tissue swelling. POPLITEAL: Thrombus in the popliteal vein. CALF VESSELS: Normal compression and augmentation. No visualized echogenic material on quinonez scale. No defects on color images. GSV AND SSV: Thrombus in the GSV and SSD. ANY DEEP VENOUS INSUFFICIENCY: Not evaluated. ANY EVIDENCE POPLITEAL CYST: No. OTHER: No other significant finding. IMPRESSION: ACUTE DVT AND SVT IN THE LEFT LEG. NO EVIDENCE DVT OR SVT IN THE RIGHT LEG. TECHNICAL DOCUMENTATION: JOB ID: [id number] [employer]- All Rights Reserved
[2017-04-11] MEDS ORDERED: CLONIDINE HCL 0.2 MG TABLET PO ONE (16:05)
[2017-04-11 16:14] VITALS: BP 201/87
== END 2017-04-11 16:14 | disposition home or self-care (01) ==
LOC: ER 11:47
DX: I82.412 Acute embolism and thrombosis of left femoral vein (principal); I82.432 Acute embolism and thrombosis of left popliteal vein; I82.401 Acute embolism and thrombosis of unspecified deep veins of right lower extremity; K59.00 Constipation, unspecified; I48.91 Unspecified atrial fibrillation; I25.10 Atherosclerotic heart disease of native coronary artery without angina pectoris; I25.2 Old myocardial infarction; I10 Essential (primary) hypertension; E11.9 Type 2 diabetes mellitus without complications; Z86.711 Personal history of pulmonary embolism; Z95.810 Presence of automatic (implantable) cardiac defibrillator; Z86.73 Personal history of transient ischemic attack (TIA), and cerebral infarction without residual deficits
CPT/HCPCS: 36591; 99284; 36415; 82550; 85025; 80053; 93970; A9270 ×3; J3490

== ENCOUNTER 2017-05-02 12:37 | Inpatient (IN) | payer MEDICARE, BC ==
--- NOTE | 2017-05-02 12:50 | ER Document Report ---
ED General - General Stated Complaint: WEAKNESS Time Seen by Provider: 05/02/17 12:45 Notes: 56-year-old male with quadriplegia and known constipation present to the ED with several complaints. He called EMS for a feeling of weakness. To me his chief complaint is abdominal pain, in the middle on the right side, constant since 3 in the morning and slightly relieved when he had a bowel movement at home. No nausea vomiting or fever. He has also had a headache for 3 days "suffers with from depression." Previous records are he has been to the ED before needing to be disimpacted and with constipation. TRAVEL OUTSIDE OF THE [place] IN LAST 30 DAYS: No - Related Data Allergies/Adverse Reactions: No Known Drug Allergies Allergy (Unknown, Verified 05/02/17 13:14) Past Medical History - General Information source: Patient - Social History Smoking Status: Former Smoker Family History: Reviewed & Not Pertinent - Past Medical History Cardiac Medical History: Reports: Hx Atrial Fibrillation, Hx Coronary Artery Disease, Hx Heart Attack, Hx Hypercholesterolemia, Hx Hypertension, Hx Pulmonary Embolism Pulmonary Medical History: Reports: Hx Bronchitis Neurological Medical History: Reports: Hx Cerebrovascular Accident Endocrine Medical History: Reports: Hx Diabetes Mellitus Type 2 Renal/ Medical History: Denies: Hx Peritoneal Dialysis Musculoskeltal Medical History: Reports Hx Muscle Weakness Psychiatric Medical History: Reports: Hx Anxiety, Hx Depression Past Surgical History: Reports: Hx Internal Defibrillator, Hx Pacemaker - Immunizations Hx Diphtheria, Pertussis, Tetanus Vaccination: - unknown Review of Systems - Review of Systems Notes: REVIEW OF SYSTEMS GEN: Denies fever, chills, weight loss ENT: Denies sore throat, nasal discharge, ear pain EYES: Denies blurry vision, eye pain, discharge CV: Denies chest pain, palpitations, edema RESP: Denies cough, shortness of breath, wheezing GI: D abdominal pain MSK: Denies joint pain/swelling, edema, SKIN: Denies rash, skin lesions LYMPH: Denies swollen glands/lymph nodes NEURO: Denies headache, focal weakness or numbness, dizziness PSYCH: Depression PHYSICAL EXAMINATION General: No acute distress, well-nourished Head: Atraumatic, normocephalic ENT: Mouth normal, oropharynx dry, no exudates or tonsillar enlargement Eyes: Conjunctiva normal, pupils equal, lids normal Neck: No JVD, supple, no guarding CVS: Normal rate, regular rhythm, no murmurs Resp: No resp distress, equal and normal breath sounds bilaterally GI: Nondistended, soft, no tenderness to palpation, no rebound or guarding the patient had a large bowel movement in his diaper when he arrived in the emergency department. It looks firm. No blood. Ext: No deformities, no edema, normal range of motion in upper and lower ext Back: No CVA or midline TTP Skin: No rash, warm Lymphatic: No lymphadeopathy noted Neuro: Awake, alert. Face symmetric. GCS 15. Quadriplegic at baseline. Physical Exam - Vital signs Vitals: Temp Pulse Resp Pulse Ox 100.0 F 95 22 H 98 05/02/17 12:58 05/02/17 12:58 05/02/17 12:58 05/02/17 12:58 Course - Re-evaluation Re-evalutation: 05/02/17 14:32 Patient presents with vague abdominal pain and fatigue in the setting of quadriplegia. Abdominal exam is benign. He had 4 or 5 bowel movements while in the ED and his pain resolved. I was alerted by nursing that his temperature orally was 100.4. Will begin a sepsis workup although I do not believe it is abdominal sepsis because he has no diarrhea and is passing stool, and his pain is relieved. 05/02/17 16:02 Patient sleeping comfortably with a blood pressure of 200. His abdominal x-ray shows possible ileus as well as a right-sided kidney stone which is both of which could be the cause of his abdominal pain. Given his borderline fever I checked a lactate it came back at 3. We will proceed with fluids and antibiotics and admit the patient, and get a CT scan to rule out a surgical abdominal problem. 05/02/17 17:03 Patient is now febrile to 101. CT is done and on my read there is some stranding on the right kidney may be the right colon but no large kidney stones distally. Urine is negative and chest x-ray was read normal and acute abdominal series. This time there is no source for the patient's leukocytosis with left shift but he will be receiving antibiotics. They were ordered a couple hours ago but the patient was mistakenly discharged off electronic tracking board so they were delayed, the nurse just informed me of this at 5:03 PM. Will be admitted to hospitalist covering for Dr. Agudelo. - Vital Signs Vital signs: Temp Pulse Resp BP Pulse Ox 100.4 F 95 22 H 203/96 H 98 05/02/17 14:36 05/02/17 12:58 05/02/17 12:58 05/02/17 15:01 05/02/17 12:58 - Laboratory Result Diagrams: 05/02/17 14:50 05/02/17 14:50 Laboratory results interpreted by me: 05/02/17 05/02/17 05/02/17 14:50 14:50 14:50 WBC 21.2 H Hgb 11.7 L Hct 37.0 L MCH 25.1 L MCHC 31.5 L RDW 14.7 H Seg Neuts % (Manual) 96 H Lymphocytes % (Manual) 2 L Monocytes % (Manual) 2 L Abs Neuts (Manual) 20.4 H Abs Lymphs (Manual) 0.4 L Sodium 136.5 L Lactic Acid 3.0 H Urine Protein Urine Blood 05/02/17 15:05 WBC Hgb Hct MCH MCHC RDW Seg Neuts % (Manual) Lymphocytes % (Manual) Monocytes % (Manual) Abs Neuts (Manual) Abs Lymphs (Manual) Sodium Lactic Acid Urine Protein 30 H Urine Blood MODERATE H Critical Care Note - Critical Care Note Total time excluding time spent on procedures (mins): 32 Discharge - Discharge Clinical Impression: Chest pain Condition: Good Disposition: ADMITTED INPATIENT Admitting Provider: Magnus [facility] Admitted: [facility]
[2017-05-02] MEDS ORDERED: ONDANSETRON 4 MG TAB.RAPDIS PO ONE (13:19)
--- NOTE | 2017-05-02 15:26 | RADIOLOGY REPORT (SQ) ---
EXAM DESCRIPTION: ACUTE ABDOMEN SERIES COMPLETED DATE/TIME: 05/02/2017 3:11 pm REASON FOR STUDY: constip. r/o hi gr obstruction COMPARISON: None. NUMBER OF VIEWS: Three views. TECHNIQUE: Frontal chest, supine abdomen and upright/decubitus abdomen radiographic images acquired. LIMITATIONS: None. FINDINGS: CHEST: Lungs clear of infiltrates. FREE AIR: None. No abnormal gas collections. BOWEL GAS PATTERN: Isolated dilated mid abdominal small bowel loops without air-fluid level. Possibl e fecal impaction. CALCIFICATIONS: Stable right renal calculus. HARDWARE: None in the abdomen. SOFT TISSUES: No gross mass or suggestion of organomegaly. BONES: No acute fracture. No worrisome bone lesions. OTHER: Venous access catheter tip cavoatrial junction. IMPRESSION: Right renal calculus. Likely mid abdominal adynamic ileus. Possible fecal impaction. TECHNICAL DOCUMENTATION: JOB ID: [id number] [employer]- All Rights Reserved
[2017-05-02 15:27] LABS: HEMOGLOBIN 11.7 g/dL (13.5-17.0); HGB HCT DIFFERENCE -1.9; MEAN CORPUSCULAR HEMOGLOBIN 25.1 pg (27.0-33.4); MEAN CORPUSCULAR HGB CONC 31.5 g/dL (32.0-36.0); MEAN CORPUSCULAR VOLUME 80 fl (80-97); RED BLOOD COUNT 4.64 10^6/uL (4.35-5.55); RED CELL DISTRIBUTION WIDTH 14.7 % (11.5-14.0); WHITE BLOOD COUNT 21.2 10^3/uL (4.0-10.5)
[2017-05-02 15:44] LABS: APPEARANCE,URINE CLEAR; BILIRUBIN,URINE NEGATIVE (NEGATIVE); GLUCOSE, URINE NEGATIVE (NEGATIVE); KETONES,URINE NEGATIVE (NEGATIVE); LEUKOCYTE ESTERASE,URINE NEGATIVE (NEGATIVE); NITRITE,URINE NEGATIVE (NEGATIVE); PROTEIN,URINE 30 mg/dL (NEGATIVE); URINE SPECIFIC GRAVITY 1.006; UROBILINOGEN,URINE NEGATIVE mg/dL (<2.0)
[2017-05-02 15:45] LABS: ANION GAP 8 (5-19); BLOOD UREA NITROGEN 15 mg/dL (7-20); CALCIUM 8.6 mg/dL (8.4-10.2); CARBON DIOXIDE 22 mmol/L (22-30); CHLORIDE 107 mmol/L (98-107); CREATININE RESULT 0.75 mg/dL (0.52-1.25); GLUCOSE 84 mg/dL (75-110); POTASSIUM 3.8 mmol/L (3.6-5.0); SODIUM 136.5 mmol/L (137-145)
[2017-05-02] MEDS ORDERED: NORMAL SALINE 1000 ML 1,000 ML IV ONE (15:58)
[2017-05-02 16:00] LABS: BASOPHILS % (MANUAL) 0 % (0-2); EOSINOPHILS % (MANUAL) 0 % (0-6); LYMPHOCYTES % (MANUAL) 2 % (13-45); TOTAL CELLS COUNTED 100
[2017-05-02 16:01] LABS: ANISOCYTOSIS SLIGHT; HYPOCHROMASIA SLIGHT; MICROCYTOSIS SLIGHT; TARGET CELLS SLIGHT; TOXIC GRANULATION SLIGHT
[2017-05-02] MEDS ORDERED: PIPERACILLIN/TAZOBACTAM 3.375 GM VIAL IV ONE ×2 (16:03→17:00)
[2017-05-02] MEDS ORDERED: ACETAMINOPHEN 325 MG TABLET PO ONE (17:03)
--- NOTE | 2017-05-02 17:07 | RADIOLOGY REPORT (SQ) ---
EXAM DESCRIPTION: CT ABD/PELVIS WITH IV ONLY COMPLETED DATE/TIME: 05/02/2017 4:26 pm REASON FOR STUDY: i;leaus vs. obstr COMPARISON: 05/02/2017 three-way abdomen series CT abdomen pelvis 03/10/2016, 02/13/2016 TECHNIQUE: CT scan of the abdomen and pelvis performed using helical scanning technique with dynamic intravenous contrast injection. No oral contrast. Images reviewed with lung, soft tissue, and bone windows. Reconstructed coronal and sagittal MPR images reviewed. Delayed images for evaluation of the urinary system also acquired. All images stored on PACS. All CT scanners at this facility use dose modulation, iterative reconstruction, and/or weight based d osing when appropriate to reduce radiation dose to as low as reasonably achievable (ALARA). [facility]: Dose Right [facility]: CareDose [facility]: Dose Right [facility]: Teradose 4D [facility]: Catapooolt CONTRAST TYPE AND DOSE: contrast/concentration: Isovue 370.00 mg/ml; Total Contrast Delivered: 100.0 ml; Total Saline Delivered: 70.0 ml RENAL FUNCTION: Creatinine 0.75 RADIATION DOSE: Up-to-date CT equipment and radiation dose reduction techniques were employed. CTDIv ol: 17.1 - 20.1 mGy. DLP: 2061 mGy-cm.. LIMITATIONS: No oral contrast Patient scanned with the arms at his sides, streak artifact through the upper abdomen FINDINGS: LOWER CHEST: Lung bases are clear. Small hiatal hernia. Stable moderate cardiomegaly LIVER: Normal size. No masses. No dilated ducts. SPLEEN: Normal size. No focal lesions. PANCREAS: No masses. No significant calcifications. No adjacent inflammation or peripancreatic fluid collections. Pancreatic duct not dilated. GALLBLADDER: No identified stones by CT criteria. No inflammatory changes to suggest cholecystitis. ADRENAL GLANDS: No significant masses or asymmetry. RIGHT KIDNEY AND URETER: No solid masses. 11 mm right lower pole intrarenal nonobstructive stone, 1 ,100 Hounsfield units best shown on coronal image 40. No right ureteral calculi. No hydronephrosis or hydroureter. LEFT KIDNEY AND URETER: No solid masses. No significant calcifications. No hydronephrosis or hydr oureter. AORTA AND VESSELS: No aneurysm. No dissection. Renal arteries, SMA, celiac without stenosis. RETROPERITONEUM: No retroperitoneal adenopathy, hemorrhage or masses. BOWEL AND PERITONEAL CAVITY: No masses or inflammatory changes. No free fluid or peritoneal masses. APPENDIX: Normal. PELVIS: No mass. No free fluid. Normal bladder. ABDOMINAL WALL: Fatty left inguinal hernia BONES: Bilateral spondylolysis at L5 with grade 1 anterolisthesis. OTHER: No other significant finding. IMPRESSION: Grossly nonobstructive bowel gas pattern. No free intraperitoneal air or fluid. Nonobstructive right lower pole intrarenal nonobstructive stone. Fatty left inguinal hernia TECHNICAL DOCUMENTATION: JOB ID: [id number] Quality ID # [id number]: Final reports with documentation of one or more dose reduction techniques (e.g., Au tomated exposure control, adjustment of the mA and/or kV according to patient size, use of iterative reconstruction technique) 2010 [employer]- All Rights Reserved
[2017-05-02] MEDS ORDERED: ACETAMINOPHEN 650 MG SUPP.RECT PR PRN (18:53)
[2017-05-02] MEDS ORDERED: ENALAPRILAT DIHYDRATE INJ/PF 2.5 MG/2 ML SDV IV SCH (19:00)
[2017-05-02] MEDS ORDERED: VANCOMYCIN HCL 0 MG in DEXTROSE 5%-WATER 250 ML IV NR (19:00)
[2017-05-02] MEDS ORDERED: ENALAPRILAT DIHYDRATE INJ/PF 2.5 MG/2 ML SDV IV ONE (19:15)
[2017-05-02] MEDS ORDERED: ENOXAPARIN SODIUM INJ 40 MG/0.4 ML DISP.SYRIN SUBCUT ONE (19:30)
[2017-05-02] MEDS: DEXTROSE 5%-WATER 1000 ML 1,000 ML IV PRN (19:49)
[2017-05-02] MEDS: VANCOMYCIN HCL 1,250 MG in DEXTROSE 5%-WATER 250 ML IV SCH (21:43)
[2017-05-02] MEDS: PIPERACILLIN SODIUM/TAZOBACTAM 3.375 GM in NORMAL SALINE 100 ML IV SCH (23:27)
[2017-05-03] MEDS: ENALAPRILAT DIHYDRATE INJ/PF 2.5 MG/2 ML SDV IV SCH ×3 (03:51→13:03)
[2017-05-03] MEDS: VANCOMYCIN HCL 1,250 MG in DEXTROSE 5%-WATER 250 ML IV SCH ×3 (05:17→22:05)
--- NOTE | 2017-05-03 06:46 | Physician Advisory Note ---
Physician Advisor ProgressNote .: [facility], I have reviewed the medical record for this patient. Physician Advisor Statement: Please consider documenting, if you agree: 1. "Suspected Bacterial infxn of undetermined origin" 2. ? - "Possible sepsis, present on admission, due to ___" ["bacterial infxn of undetermined etiology", or ...] - "evidenced by Tmax 102.9, WBC 21.2, RR22 up to 25, HR 95, lactate 3 & then 3.9, ileus" 3. "Acute abdominal pain, suspect due to ____" ["ileus, resolved in ED"? acute nephrolithiasis? ...] 4. "Acute hyponatremia, mild, suspect due to " 5. "persistent Afib" vs "paroxysmal Afib" Thanks! CK
[2017-05-03] MEDS: PIPERACILLIN SODIUM/TAZOBACTAM 3.375 GM in NORMAL SALINE 100 ML IV SCH ×3 (06:52→18:12)
[2017-05-03 07:40] LABS: HEMATOCRIT 30.2 % (37.9-51.0); MEAN CORPUSCULAR HEMOGLOBIN 24.6 pg (27.0-33.4); MEAN CORPUSCULAR HGB CONC 31.3 g/dL (32.0-36.0); MEAN CORPUSCULAR VOLUME 79 fl (80-97); RED BLOOD COUNT 3.83 10^6/uL (4.35-5.55); RED CELL DISTRIBUTION WIDTH 15.2 % (11.5-14.0)
[2017-05-03 07:45] LABS: ALANINE AMINOTRANSFERASE 17 U/L (21-72); ALBUMIN 2.6 g/dL (3.5-5.0); ALKALINE PHOSPHATASE 53 U/L (38-126); ANION GAP 8 (5-19); ASPARTATE AMINO TRANSFERASE 24 U/L (17-59); BILIRUBIN,DIRECT 0.3 mg/dL (0.0-0.4); BILIRUBIN,TOTAL 1.1 mg/dL (0.2-1.3); BLOOD UREA NITROGEN 17 mg/dL (7-20); CALCIUM 8.2 mg/dL (8.4-10.2); CARBON DIOXIDE 24 mmol/L (22-30); CHLORIDE 104 mmol/L (98-107); CREATININE RESULT 1.01 mg/dL (0.52-1.25); GLUCOSE 78 mg/dL (75-110); POTASSIUM 3.5 mmol/L (3.6-5.0); SODIUM 135.8 mmol/L (137-145); TOTAL PROTEIN 5.8 g/dL (6.3-8.2)
[2017-05-03 08:04] LABS: HEMOGLOBIN 9.4 g/dL (13.5-17.0)
[2017-05-03 08:09] LABS: ANISOCYTOSIS SLIGHT; BAND NEUTROPHILS % (MANUAL) 7 % (3-5); BASOPHILS % (MANUAL) 0 % (0-2); EOSINOPHILS % (MANUAL) 0 % (0-6); LYMPHOCYTES % (MANUAL) 7 % (13-45); MICROCYTOSIS SLIGHT; TOTAL CELLS COUNTED 100
[2017-05-03 08:11] LABS: TOXIC GRANULATION SLIGHT; TOXIC VACUOLATION PRESENT
[2017-05-03 08:14] LABS: ACANTHOCYTES SLIGHT; HYPOCHROMASIA SLIGHT; PLATELET CLUMPS PRESENT; POLYCHROMASIA SLIGHT; TARGET CELLS SLIGHT; TEAR DROP CELLS SLIGHT
[2017-05-03 08:15] LABS: OVALOCYTES SLIGHT
[2017-05-03 09:40] LABS: PATH REVIEW PATHOLOGIST REVIEWED
[2017-05-03] MEDS ORDERED: ENOXAPARIN SODIUM INJ 40 MG/0.4 ML DISP.SYRIN SUBCUT SCH (10:00)
[2017-05-03] MEDS: DEXTROSE 5%-WATER 1000 ML 1,000 ML IV PRN (10:52)
[2017-05-03] MEDS ORDERED: ACETAMINOPHEN 325 MG TABLET ONE (14:58)
--- NOTE | 2017-05-03 15:27 | PDOC H&P ---
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 He is bedbound extremely noncompliant, he came to the emergency room for evaluation of a vague abdominal pain in the right flank, he is a very poor historian, history taking was a challenge especially with the dysphasia. In the emergency room he was evaluated the hemogram revealed severe leukocytosis that was associated fever with temperature of 104. CT scan of the abdomen and pelvis with IV contrast was done it showed grossly nonobstructive bowel gas pattern, no free intraperitoneal air or fluid, nonobstructive right lower pole intrarenal nonobstructing stone. Chest x-ray was negative for any infiltrates that suggest pneumonia the urinalysis was grossly abnormal with bacteriuria and hematuria. There was also lactic acidosis the presentation is consistent with sepsis syndrome the most likely source is the urine. The blood pressure recorded was severely elevated, he has a history of hypertension poorly controlled. On examination of his skin, there is diffuse erythema with areas of pustules, the feet is crusty with diminished pedal pulses suggesting peripheral vascular disease Past Medical History Cardiac Medical History: Reports: Atrial Fibrillation, Coronary Artery Disease, Myocardial Infarction, Hyperlipidema, Hypertension, Pulmonary Embolism Pulmonary Medical History: Reports: Bronchitis Endocrine Medical History: Reports: Diabetes Mellitus Type 2 Psychiatric Medical History: Reports: Depression Social History Smoking Status: Never Smoker Frequency of Alcohol Use: None Hx Recreational Drug Use: No Drugs: None Hx Prescription Drug Abuse: No Family History Family History: Reviewed & Not Pertinent Parental Family History Reviewed: Yes Children Family History Reviewed: Yes Sibling(s) Family History Reviewed.: Yes Medication/Allergy Home Medications: Amlodipine Besylate [Norvasc 5 mg Tablet] 5 mg PO DAILY 05/02/17 Apixaban [Eliquis 5 mg Tablet] 10 mg PO Q12 05/02/17 Aspirin [Aspirin 81 mg Chewable Tablet] 81 mg PO DAILY 05/02/17 Docusate Sodium [Dok] 100 mg PO DAILYP PRN 05/02/17 Losartan Potassium [Cozaar 50 mg Tablet] 50 mg PO DAILY 05/02/17 Polyethylene Glycol 3350 [Miralax Powder 17 gm/Packet] 17 gm PO DAILY 05/02/17 Allergies/Adverse Reactions: No Known Drug Allergies Allergy (Unknown, Verified 05/02/17 13:14) Review of Systems Constitutional: PRESENT: chills, fatigue, fever(s) Cardiovascular: ABSENT: as per HPI, chest pain, dyspnea on exertion, edema, orthropnea, palpitations, other Gastrointestinal: PRESENT: abdominal pain Neurological: PRESENT: abnormal gait Physical Exam Vital Signs: Temp Pulse Resp BP Pulse Ox 98.0 F 73 20 122/57 L 99 05/03/17 11:04 05/03/17 11:04 05/03/17 11:04 05/03/17 11:04 05/03/17 11:04 Intake & Output 05/02/17 05/03/17 05/04/17 06:59 06:59 06:59 Intake Total 2125 462 Output Total 1000 500 Balance 1125 -38 Weight 96.6 kg General appearance: PRESENT: mild distress Eye exam: PRESENT: PERRLA Respiratory exam: PRESENT: clear to auscultation robyn Cardiovascular exam: PRESENT: +S1, +S2 Pulses: PRESENT: other - diminshed pedal pulses GI/Abdominal exam: PRESENT: soft Neurological exam: PRESENT: alert, other - Quadriparesis Skin exam: PRESENT: erythema - pustules, other - Skin changes Results Laboratory Results: 05/03/17 06:30 05/03/17 06:30 05/02/17 05/02/17 05/03/17 19:35 20:30 06:30 WBC 51.0 H* D RBC 3.83 L Hgb 9.4 L D Hct 30.2 L MCV 79 L MCH 24.6 L MCHC 31.3 L RDW 15.2 H Plt Count 190 Seg Neutrophils % Not Reportable Lymphocytes % Not Reportable Monocytes % Not Reportable Eosinophils % Not Reportable Basophils % Not Reportable Absolute Neutrophils Not Reportable Absolute Lymphocytes Not Reportable Absolute Monocytes Not Reportable Absolute Eosinophils Not Reportable Absolute Basophils Not Reportable Carbonic Acid 0.99 L HCO3/H2CO3 Ratio 22:1 ABG pH 7.45 ABG pCO2 33.0 L ABG pO2 65.8 L ABG HCO3 22.4 ABG O2 Saturation 94.0 ABG Base Excess -1.0 FiO2 ROOM AIR Sodium Potassium Chloride Carbon Dioxide Anion Gap BUN Creatinine Est GFR ( Amer) Est GFR (Non-Af Amer) Glucose Lactic Acid 3.9 H Calcium Total Bilirubin AST ALT Alkaline Phosphatase Total Protein Albumin 05/03/17 06:30 WBC RBC Hgb Hct MCV MCH MCHC RDW Plt Count Seg Neutrophils % Lymphocytes % Monocytes % Eosinophils % Basophils % Absolute Neutrophils Absolute Lymphocytes Absolute Monocytes Absolute Eosinophils Absolute Basophils Carbonic Acid HCO3/H2CO3 Ratio ABG pH ABG pCO2 ABG pO2 ABG HCO3 ABG O2 Saturation ABG Base Excess FiO2 Sodium 135.8 L Potassium 3.5 L Chloride 104 Carbon Dioxide 24 Anion Gap 8 BUN 17 Creatinine 1.01 Est GFR ( Amer) > 60 Est GFR (Non-Af Amer) > 60 Glucose 78 Lactic Acid Calcium 8.2 L Total Bilirubin 1.1 AST 24 ALT 17 L Alkaline Phosphatase 53 Total Protein 5.8 L Albumin 2.6 L Impressions: Acute Abdomen Series 05/02/17 12:50 IMPRESSION: Right renal calculus. Likely mid abdominal adynamic ileus. Possible fecal impaction. Abdomen/Pelvis CT 05/02/17 15:58 IMPRESSION: Grossly nonobstructive bowel gas pattern. No free intraperitoneal air or fluid. Nonobstructive right lower pole intrarenal nonobstructive stone. Fatty left inguinal hernia Assessment & Plan - Diagnosis (1) Sepsis Qualifiers: Sepsis type: sepsis due to unspecified organism Qualified Code(s): A41.9 - Sepsis, unspecified organism Plan: Patient's symptoms and signs is consistent with sepsis, temperature 104, lactic acidosis, severe leukocytosis tachycardia the potential source for the sepsis is the urine because of endocarditis, he has pustules, blood culture already drawn, he will empirically be treated with antibiotic to cover MRSA and gram- negative organisms, vancomycin and Zosyn antibiotic. A transthoracic echo will be ordered is less sensitive than a MAIKEL. I discussed CODE STATUS with this patient wants to be full code. (2) Hypertensive emergency Is this a current diagnosis for this admission?: Yes (3) Quadriplegia and quadriparesis Is this a current diagnosis for this admission?: Yes
--- NOTE | 2017-05-03 15:42 | PDOC PROGRESS REPORT ---
Subjective Progress Note for:: 05/03/17 Subjective:: Patient was seen by the bedside, he was admitted yesterday because of sepsis syndrome, the urine culture is growing gram-negative rods, the blood culture is growing gram-negative rods, he is presently on IV antibiotic to cover gram- negative sepsis and MRSA. Transthoracic echocardiogram is ordered to evaluate the valve for vegetations, arterial Doppler of both legs are ordered because PAD suspected. Physical Exam Vital Signs: Temp Pulse Resp BP Pulse Ox 98.0 F 73 20 122/57 L 99 05/03/17 11:04 05/03/17 11:04 05/03/17 11:04 05/03/17 11:04 05/03/17 11:04 Intake & Output 05/02/17 05/03/17 05/04/17 06:59 06:59 06:59 Intake Total 2125 462 Output Total 1000 500 Balance 1125 -38 Weight 96.6 kg Results Laboratory Results: 05/03/17 06:30 05/03/17 06:30 05/02/17 05/02/17 05/03/17 19:35 20:30 06:30 WBC 51.0 H* D RBC 3.83 L Hgb 9.4 L D Hct 30.2 L MCV 79 L MCH 24.6 L MCHC 31.3 L RDW 15.2 H Plt Count 190 Seg Neutrophils % Not Reportable Lymphocytes % Not Reportable Monocytes % Not Reportable Eosinophils % Not Reportable Basophils % Not Reportable Absolute Neutrophils Not Reportable Absolute Lymphocytes Not Reportable Absolute Monocytes Not Reportable Absolute Eosinophils Not Reportable Absolute Basophils Not Reportable Carbonic Acid 0.99 L HCO3/H2CO3 Ratio 22:1 ABG pH 7.45 ABG pCO2 33.0 L ABG pO2 65.8 L ABG HCO3 22.4 ABG O2 Saturation 94.0 ABG Base Excess -1.0 FiO2 ROOM AIR Sodium Potassium Chloride Carbon Dioxide Anion Gap BUN Creatinine Est GFR ( Amer) Est GFR (Non-Af Amer) Glucose Lactic Acid 3.9 H Calcium Total Bilirubin AST ALT Alkaline Phosphatase Total Protein Albumin 05/03/17 06:30 WBC RBC Hgb Hct MCV MCH MCHC RDW Plt Count Seg Neutrophils % Lymphocytes % Monocytes % Eosinophils % Basophils % Absolute Neutrophils Absolute Lymphocytes Absolute Monocytes Absolute Eosinophils Absolute Basophils Carbonic Acid HCO3/H2CO3 Ratio ABG pH ABG pCO2 ABG pO2 ABG HCO3 ABG O2 Saturation ABG Base Excess FiO2 Sodium 135.8 L Potassium 3.5 L Chloride 104 Carbon Dioxide 24 Anion Gap 8 BUN 17 Creatinine 1.01 Est GFR ( Amer) > 60 Est GFR (Non-Af Amer) > 60 Glucose 78 Lactic Acid Calcium 8.2 L Total Bilirubin 1.1 AST 24 ALT 17 L Alkaline Phosphatase 53 Total Protein 5.8 L Albumin 2.6 L Impressions: Acute Abdomen Series 05/02/17 12:50 IMPRESSION: Right renal calculus. Likely mid abdominal adynamic ileus. Possible fecal impaction. Abdomen/Pelvis CT 05/02/17 15:58 IMPRESSION: Grossly nonobstructive bowel gas pattern. No free intraperitoneal air or fluid. Nonobstructive right lower pole intrarenal nonobstructive stone. Fatty left inguinal hernia Assessment & Plan - Diagnosis (1) Sepsis Qualifiers: Sepsis type: sepsis due to unspecified organism Qualified Code(s): A41.9 - Sepsis, unspecified organism Is this a current diagnosis for this admission?: Yes Plan: Patient will be continued on intravenous Zosyn and vancomycin until specific organism is identified (2) Hypertensive emergency Is this a current diagnosis for this admission?: Yes (3) Quadriplegia and quadriparesis Is this a current diagnosis for this admission?: Yes (4) Atrial fibrillation Qualifiers: Atrial fibrillation type: chronic Qualified Code(s): I48.2 - Chronic atrial fibrillation Is this a current diagnosis for this admission?: Yes Plan: He has chronic atrial fibrillation, on chronic anticoagulation with Eliquis, this be continued, he also takes amlodipine this to be discontinued and replaced with a beta-smooth, metoprolol succinate 100 mg p.o. daily.
[2017-05-03] MEDS ORDERED: AMLODIPINE BESYLATE 5 MG TABLET PO SCH (15:45)
[2017-05-03] MEDS ORDERED: METOPROLOL SUCCINATE 50 MG TAB.SR.24H PO ONE ×2 (16:30→18:30)
[2017-05-03] MEDS ORDERED: LOSARTAN POTASSIUM 50 MG TABLET PO ONE (16:30)
[2017-05-03] MEDS ORDERED: POTASSIUM CHLORIDE 20 MEQ/15 ML UDCUP PO ONE (16:30)
--- NOTE | 2017-05-03 17:37 | RADIOLOGY REPORT (SQ) ---
EXAM DESCRIPTION: ARTERIAL LOWER EXTREM BILAT COMPLETED DATE/TIME: 05/03/2017 4:57 pm REASON FOR STUDY: suspect PAD COMPARISON: CT abdomen and pelvis 05/02/2017 TECHNIQUE: Dynamic and static quinonez scale and color images acquired of the lower extremity arteries. Additional selected spectral images recorded. ABIs attempted. LIMITATIONS: Calcified distal vessels, unable to obtain ankle-brachial indices FINDINGS: RIGHT LEG: ABIS: Nondiagnostic INFLOW ARTERIES: Normal, no obstruction evident. FEMORAL ARTERIES:Multiphasic waveforms. Normal, no velocity elevation to suggest focal stenosis. Norm al color Doppler evaluation. No aneurysm. POPLITEAL ARTERY:Multiphasic waveforms. Normal, no velocity elevation to suggest focal stenosis. Norm al color Doppler evaluation. No aneurysm. TIBIOPERONEAL TRUNK AND CALF RUNOFF: Posterior tibial artery patent throughout the calf with multipha sic flow. Anterior tibial artery is occluded proximally with collateral filling of the dorsalis pedi s. Peroneal artery not evaluated. TBI: Not performed. OTHER: No other significant finding. LEFT LEG: ABIS: Nondiagnostic INFLOW ARTERIES: Normal, no obstruction evident. FEMORAL ARTERIES:Multiphasic waveforms. Normal, no velocity elevation to suggest focal stenosis. Norm al color Doppler evaluation. No aneurysm. POPLITEAL ARTERY:Multiphasic waveforms. Normal, no velocity elevation to suggest focal stenosis. Norm al color Doppler evaluation. No aneurysm. TIBIOPERONEAL TRUNK AND CALF RUNOFF: Posterior tibial artery is patent throughout the calf with multi phasic flow. Anterior tibial artery is occluded, with collateral filling of the dorsalis pedis. Per clifton artery not evaluated. TBI: Not performed. OTHER: No other significant finding. 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 COMMENT: [facility] NORMAL: Greater than 1.0 MINIMAL DISEASE: 0.9 to 1.0 CLAUDICATION: 0.5 to 0.9 SEVERE ARTERIAL DISEASE: Less than 0.5 [facility] NORMAL: Greater than 1.0 (1.2 If Heavy Calcifications) NORMAL TO MILD ISCHEMIA: 0.8 to 1.0 MODERATE ISCHEMIA: 0.4 to 0.8 SEVERE ISCHEMIA: Less than 0.4 TECHNICAL DOCUMENTATION: JOB ID: [id number] All Rights Reserved
[2017-05-03] MEDS: APIXABAN 5 MG TABLET PO SCH (18:13)
--- NOTE | 2017-05-03 19:22 | XCELERA REPORT ---
[address] [address] Transthoracic Echocardiogram Report Name: BIRDIE MOSER JR Age: 56 yrs Gender: Male : 1960 Patient Status: Inpatient Patient Location: [address] [place] [address] Study Date: 05/03/2017 03:45 PM Height: 70 in Weight: 212 lb BSA: 2.1 m2 Procedure: A complete two-dimensional transthoracic echocardiogram was performed (2D, M-mode, spectral and color flow Doppler). The study was technically adequate with some images being suboptimal in quality. Reason For Study: suspect endocarditis Ordering Physician: LINDA WILLIAMSON Performed By: Henry Larsen Interpretation Summary The study was technically adequate with some images being suboptimal in quality. The left ventricular ejection fraction is normal. The left ventricle is grossly normal size. There is mild concentric left ventricular hypertrophy. Doppler measurements suggest pseudonormalized left ventricular relaxation, which is associated with grade II/IV or mild to moderate diastolic dysfunction Wall motion cannot be accurately commented on, but no definite regional wall motion abnormalities noted. The right ventricular systolic function is normal. The right atrium is normal in size The left atrium is moderately dilated. There is no mitral valve stenosis. There is a trace amount of mitral regurgitation There is no aortic valve stenosis No aortic regurgitation is present. There is a trace to mild amount of tricuspid regurgitation There is mild pulmonary hypertension by echo Right ventricular systolic pressure is estimated to be elevated at 30- 40mmHg. The aortic root is not well visualized. The inferior vena cava appeared normal and decreased > 50% with respiration (RAP 5-10 mmHg) No definite vegetations noted but cannot completely rule it out. No definite vegetations noted but if clinical suspicion is high, then consider MAIKEL and multiple blood cultures. MMode/2D Measurements & Calculations RVDd: 2.3 cm LVIDd: 5.5 cm FS: 45.5 % Ao root diam: 3.4 cm IVSd: 1.1 cm LVIDs: 3.0 cm EDV(Teich): 146.1 ml LVPWd: 1.1 cm ESV(Teich): 34.5 ml Ao root area: 9.3 cm2 EF(Teich): 76.4 % LA dimension: 4.8 cm Doppler Measurements & Calculations MV E max mary: MV P1/2t max mary: Ao V2 max: LV V1 max P.7 cm/sec 63.1 cm/sec 121.9 cm/sec 5.1 mmHg MV A max mary: MV P1/2t: 80.3 msec Ao max PG: LV V1 max: 74.7 cm/sec 5.9 mmHg 113.0 cm/sec MV E/A: 0.84 MVA(P1/2t): 2.7 cm2 MV dec slope: 230.1 cm/sec2 PA V2 max: TR max mary: RAP systole: 73.5 cm/sec 252.5 cm/sec 10.0 mmHg PA max PG: TR max P.5 mmHg 2.2 mmHg RVSP(TR): 35.5 mmHg Left Ventricle The left ventricle is grossly normal size. There is mild concentric left ventricular hypertrophy. The left ventricular ejection fraction is normal. Doppler measurements suggest pseudonormalized left ventricular relaxation, which is associated with grade II/IV or mild to moderate diastolic dysfunction. Wall motion cannot be accurately commented on, but no definite regional wall motion abnormalities noted. Right Ventricle The right ventricle is normal in size, thickness and function. There is normal right ventricular wall thickness. The right ventricular systolic function is normal. Atria The right atrium is normal in size. The left atrium is moderately dilated. Interarterial septum not well visualized and not well dopplered. Cannot comment on ASD/PFO presence. Mitral Valve The mitral valve is grossly normal. There is no mitral valve stenosis. There is a trace amount of mitral regurgitation. Aortic Valve The aortic valve is mildly calcified. There is no aortic valve stenosis. No aortic regurgitation is present. Tricuspid Valve The tricuspid valve is not well visualized secondary to technical limitations. There is no tricuspid stenosis. There is a trace to mild amount of tricuspid regurgitation. There is mild pulmonary hypertension by echo. Right ventricular systolic pressure is estimated to be elevated at 30-40mmHg. Pulmonic Valve The pulmonic valve is not well visualized. Great Vessels The aortic root is not well visualized. The inferior vena cava appeared normal and decreased > 50% with respiration (RAP 5-10 mmHg). Effusions Minimal pericardial effusion. Incidental Findings No definite vegetations noted but cannot completely rule it out. No definite vegetations noted but if clinical suspicion is high, then consider MAIKEL and multiple blood cultures. : LINDA WILLIAMSON > Jaleel Coto
--- NOTE | 2017-05-03 21:42 | EKG REPORT ---
SEVERITY:- ABNORMAL ECG - SINUS RHYTHM ABNORMAL T, CONSIDER ISCHEMIA, ANT-LAT LEADS BORDERLINE PROLONGED QT INTERVAL : Confirmed by: Jaleel Coto 03-May-2017 21:42:13
[2017-05-03 22:41] LABS: URINE CREATININE 22.4 mg/dL (22-328); URINE PROTEIN 30.1 mg/dL (<12)
[2017-05-03 23:04] LABS: CREATININE RESULT 1.05 mg/dL (0.52-1.25)
[2017-05-03] MEDS: ACETAMINOPHEN 325 MG TABLET PO PRN (23:58)
[2017-05-04] MEDS: PIPERACILLIN SODIUM/TAZOBACTAM 3.375 GM in NORMAL SALINE 100 ML IV SCH ×4 (00:18→18:31)
[2017-05-04] MEDS ORDERED: VANCOMYCIN HCL 1,250 MG in DEXTROSE 5%-WATER 250 ML IV SCH (06:00)
[2017-05-04] MEDS: APIXABAN 5 MG TABLET PO SCH ×2 (06:27→18:30)
[2017-05-04] MEDS: VANCOMYCIN HCL 1,250 MG in DEXTROSE 5%-WATER 250 ML IV SCH (06:27)
[2017-05-04] MEDS: NORMAL SALINE 1000 ML 1,000 ML IV PRN ×2 (06:30→22:19)
[2017-05-04 07:13] LABS: HEMOGLOBIN 9.3 g/dL (13.5-17.0); HGB HCT DIFFERENCE -2.1; MEAN CORPUSCULAR HEMOGLOBIN 24.8 pg (27.0-33.4); MEAN CORPUSCULAR HGB CONC 30.9 g/dL (32.0-36.0); MEAN CORPUSCULAR VOLUME 80 fl (80-97); RED BLOOD COUNT 3.73 10^6/uL (4.35-5.55); RED CELL DISTRIBUTION WIDTH 15.5 % (11.5-14.0)
[2017-05-04 07:16] LABS: WHITE BLOOD COUNT 30.4 10^3/uL (4.0-10.5)
[2017-05-04 07:25] LABS: ALANINE AMINOTRANSFERASE 17 U/L (21-72); ALBUMIN 2.7 g/dL (3.5-5.0); ALKALINE PHOSPHATASE 55 U/L (38-126); ANION GAP 7 (5-19); ASPARTATE AMINO TRANSFERASE 20 U/L (17-59); BILIRUBIN,DIRECT 0.3 mg/dL (0.0-0.4); BILIRUBIN,TOTAL 1.1 mg/dL (0.2-1.3); BLOOD UREA NITROGEN 17 mg/dL (7-20); CALCIUM 7.9 mg/dL (8.4-10.2); CARBON DIOXIDE 24 mmol/L (22-30); CHLORIDE 108 mmol/L (98-107); GLUCOSE 66 mg/dL (75-110); POTASSIUM 3.7 mmol/L (3.6-5.0); SODIUM 139.3 mmol/L (137-145); TOTAL PROTEIN 5.9 g/dL (6.3-8.2)
[2017-05-04 07:30] LABS: BAND NEUTROPHILS % (MANUAL) 3 % (3-5); BASOPHILS % (MANUAL) 0 % (0-2); EOSINOPHILS % (MANUAL) 1 % (0-6); LYMPHOCYTES % (MANUAL) 1 % (13-45); TOTAL CELLS COUNTED 100
[2017-05-04 07:33] LABS: HYPOCHROMASIA 1+
[2017-05-04 07:34] LABS: ANISOCYTOSIS SLIGHT; HELMET CELLS SLIGHT; MICROCYTOSIS SLIGHT; OVALOCYTES SLIGHT; PLATELET CLUMPS PRESENT; POIKILOCYTOSIS 1+; TARGET CELLS SLIGHT; TEAR DROP CELLS SLIGHT
[2017-05-04] MEDS ORDERED: METOPROLOL SUCCINATE 50 MG TAB.SR.24H PO SCH (10:00)
[2017-05-04] MEDS: METOPROLOL SUCCINATE 50 MG TAB.SR.24H PO SCH (10:28)
[2017-05-04] MEDS: LOSARTAN POTASSIUM 50 MG TABLET PO SCH (10:30)
--- NOTE | 2017-05-04 19:06 | PDOC PROGRESS REPORT ---
Subjective Progress Note for:: 05/04/17 Subjective:: Patient was seen by the bedside, the urine culture grew E. coli sensitive to most antibiotic except ampicillin, amoxicillin. The blood culture result is pending. Patient also looks much better compared to yesterday, he also said he feels much better, the Sepulveda catheter is leaking this to be discontinued Physical Exam Vital Signs: Temp Pulse Resp BP Pulse Ox 98.7 F 61 20 167/87 H 100 05/04/17 16:11 05/04/17 16:11 05/04/17 16:11 05/04/17 16:11 05/04/17 16:11 Intake & Output 05/03/17 05/04/17 05/05/17 06:59 06:59 06:59 Intake Total 2125 4616 358 Output Total 1000 2000 300 Balance 1125 2616 58 Weight 96.6 kg 96.6 kg General appearance: PRESENT: no acute distress Eye exam: PRESENT: PERRLA Respiratory exam: PRESENT: clear to auscultation robyn Cardiovascular exam: PRESENT: +S1, +S2 GI/Abdominal exam: PRESENT: soft Neurological exam: PRESENT: alert Results Laboratory Results: 05/04/17 06:20 05/04/17 06:20 05/03/17 05/04/17 05/04/17 22:00 06:20 06:20 WBC 30.4 H* RBC 3.73 L Hgb 9.3 L Hct 30.0 L MCV 80 MCH 24.8 L MCHC 30.9 L RDW 15.5 H Plt Count 167 Seg Neutrophils % Not Reportable Lymphocytes % Not Reportable Monocytes % Not Reportable Eosinophils % Not Reportable Basophils % Not Reportable Absolute Neutrophils Not Reportable Absolute Lymphocytes Not Reportable Absolute Monocytes Not Reportable Absolute Eosinophils Not Reportable Absolute Basophils Not Reportable Sodium 139.3 Potassium 3.7 Chloride 108 H Carbon Dioxide 24 Anion Gap 7 BUN 17 Creatinine 1.05 1.00 Est GFR ( Amer) > 60 > 60 Est GFR (Non-Af Amer) > 60 > 60 Glucose 66 L Calcium 7.9 L Total Bilirubin 1.1 AST 20 ALT 17 L Alkaline Phosphatase 55 Total Protein 5.9 L Albumin 2.7 L Impressions: Acute Abdomen Series 05/02/17 12:50 IMPRESSION: Right renal calculus. Likely mid abdominal adynamic ileus. Possible fecal impaction. Abdomen/Pelvis CT 05/02/17 15:58 IMPRESSION: Grossly nonobstructive bowel gas pattern. No free intraperitoneal air or fluid. Nonobstructive right lower pole intrarenal nonobstructive stone. 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 Assessment & Plan - Diagnosis (1) Sepsis Qualifiers: Sepsis type: sepsis due to unspecified organism Qualified Code(s): A41.9 - Sepsis, unspecified organism Is this a current diagnosis for this admission?: Yes (2) Hypertensive emergency Is this a current diagnosis for this admission?: Yes (3) Quadriplegia and quadriparesis Is this a current diagnosis for this admission?: Yes (4) Atrial fibrillation Qualifiers: Atrial fibrillation type: chronic Qualified Code(s): I48.2 - Chronic atrial fibrillation Is this a current diagnosis for this admission?: Yes (5) E. coli urinary tract infection Is this a current diagnosis for this admission?: Yes Plan: The urine culture grew E. coli, he will be started on intravenous ertapenem, vancomycin and Zosyn will be discontinued. The ertapenem will also cover gram- positive organisms because he has pustules on the skin.
[2017-05-04] MEDS: ERTAPENEM SODIUM 1 GM in NORMAL SALINE 50 ML IV SCH (22:17)
[2017-05-04] MEDS: ACETAMINOPHEN 325 MG TABLET PO PRN (22:17)
[2017-05-05] MEDS: APIXABAN 5 MG TABLET PO SCH ×2 (05:12→18:00)
[2017-05-05] MEDS ORDERED: VANCOMYCIN HCL 1,250 MG in DEXTROSE 5%-WATER 250 ML IV SCH (06:00)
[2017-05-05 06:20] LABS: ABSOLUTE BASOPHILS # (AUTO) 0.1 10^3/uL (0.0-0.2); ABSOLUTE EOSINOPHILS # (AUTO) 0.7 10^3/uL (0.0-0.6); ABSOLUTE LYMPHOCYTES (AUTO) 1.3 10^3/uL (0.5-4.7); ABSOLUTE NEUT (AUTO) 15.4 10^3/uL (1.7-8.2); BASOPHILS % (AUTO) 0.7 % (0-2); EOSINOPHILS % (AUTO) 3.8 % (0-6); HEMOGLOBIN 9.7 g/dL (13.5-17.0); HGB HCT DIFFERENCE -1.9; LYMPHOCYTES % (AUTO) 7.1 % (13-45); MEAN CORPUSCULAR HEMOGLOBIN 25.3 pg (27.0-33.4); MEAN CORPUSCULAR HGB CONC 31.4 g/dL (32.0-36.0); MEAN CORPUSCULAR VOLUME 81 fl (80-97); MONOCYTES % (AUTO) 5.4 % (3-13); RED BLOOD COUNT 3.84 10^6/uL (4.35-5.55); RED CELL DISTRIBUTION WIDTH 15.3 % (11.5-14.0); WHITE BLOOD COUNT 18.6 10^3/uL (4.0-10.5)
[2017-05-05 06:34] LABS: ALANINE AMINOTRANSFERASE 19 U/L (21-72); ALBUMIN 2.9 g/dL (3.5-5.0); ALKALINE PHOSPHATASE 62 U/L (38-126); ANION GAP 6 (5-19); ASPARTATE AMINO TRANSFERASE 21 U/L (17-59); BILIRUBIN,DIRECT 0.3 mg/dL (0.0-0.4); BILIRUBIN,TOTAL 1.1 mg/dL (0.2-1.3); BLOOD UREA NITROGEN 11 mg/dL (7-20); CALCIUM 8.2 mg/dL (8.4-10.2); CARBON DIOXIDE 25 mmol/L (22-30); CHLORIDE 109 mmol/L (98-107); CREATININE RESULT 0.78 mg/dL (0.52-1.25); GLUCOSE 74 mg/dL (75-110); POTASSIUM 3.7 mmol/L (3.6-5.0); TOTAL PROTEIN 6.3 g/dL (6.3-8.2)
[2017-05-05] MEDS: LOSARTAN POTASSIUM 50 MG TABLET PO SCH (09:30)
[2017-05-05] MEDS: METOPROLOL SUCCINATE 50 MG TAB.SR.24H PO SCH (09:30)
[2017-05-05] MEDS: AMLODIPINE BESYLATE 10 MG TABLET PO SCH (09:30)
[2017-05-05] MEDS: NITROGLYCERIN/D5W 50 MG/250 ML RTUINJ IV PRN (14:54)
--- NOTE | 2017-05-05 21:15 | PDOC PROGRESS REPORT ---
Subjective Progress Note for:: 05/05/17 Subjective:: Patient was seen by the bedside, the blood culture grew E. coli, the urine culture grew E. coli, we will continue present IV antibiotic. The urinary catheter was discontinued, the blood pressure remains elevated , resistant to treatment with amlodipine, beta-smooth and ACEI, intravenous nitroglycerin was started because of the hypertensive urgency though patient was asymptomatic. Physical Exam Vital Signs: Temp Pulse Resp BP Pulse Ox 99.3 F 57 L 22 H 161/76 H 100 05/05/17 11:47 05/05/17 20:32 05/05/17 11:47 05/05/17 20:32 05/05/17 17:18 Intake & Output 05/04/17 05/05/17 05/06/17 06:59 06:59 06:59 Intake Total 4661 2802 855 Output Total 2000 154 1400 Balance 2613 4482 -54 Weight 96.6 kg 97.3 kg General appearance: PRESENT: no acute distress Eye exam: PRESENT: PERRLA Respiratory exam: PRESENT: clear to auscultation robyn Cardiovascular exam: PRESENT: +S1, +S2 GI/Abdominal exam: PRESENT: soft Neurological exam: PRESENT: alert Results Laboratory Results: 05/05/17 06:11 05/05/17 06:11 05/05/17 05/05/17 06:11 06:11 WBC 18.6 H RBC 3.84 L Hgb 9.7 L Hct 31.0 L MCV 81 MCH 25.3 L MCHC 31.4 L RDW 15.3 H Plt Count 183 Seg Neutrophils % 83.0 H Lymphocytes % 7.1 L Monocytes % 5.4 Eosinophils % 3.8 Basophils % 0.7 Absolute Neutrophils 15.4 H Absolute Lymphocytes 1.3 Absolute Monocytes 1.0 Absolute Eosinophils 0.7 H Absolute Basophils 0.1 Sodium 140.0 Potassium 3.7 Chloride 109 H Carbon Dioxide 25 Anion Gap 6 BUN 11 Creatinine 0.78 Est GFR ( Amer) > 60 Est GFR (Non-Af Amer) > 60 Glucose 74 L Calcium 8.2 L Total Bilirubin 1.1 AST 21 ALT 19 L Alkaline Phosphatase 62 Total Protein 6.3 Albumin 2.9 L Impressions: Acute Abdomen Series 05/02/17 12:50 IMPRESSION: Right renal calculus. Likely mid abdominal adynamic ileus. Possible fecal impaction. Abdomen/Pelvis CT 05/02/17 15:58 IMPRESSION: Grossly nonobstructive bowel gas pattern. No free intraperitoneal air or fluid. Nonobstructive right lower pole intrarenal nonobstructive stone. 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 Assessment & Plan - Diagnosis (1) Sepsis Qualifiers: Sepsis type: sepsis due to unspecified organism Qualified Code(s): A41.9 - Sepsis, unspecified organism Is this a current diagnosis for this admission?: Yes (2) Hypertensive emergency Is this a current diagnosis for this admission?: Yes Plan: Patient is started on intravenous nitroglycerin infusion to titrate blood pressure for systolic less than 140 (3) Quadriplegia and quadriparesis Is this a current diagnosis for this admission?: Yes (4) Atrial fibrillation Qualifiers: Atrial fibrillation type: chronic Qualified Code(s): I48.2 - Chronic atrial fibrillation Is this a current diagnosis for this admission?: Yes (5) E. coli urinary tract infection Is this a current diagnosis for this admission?: Yes (6) E. coli septicemia Is this a current diagnosis for this admission?: Yes Plan: Continue IV antibiotic
[2017-05-05] MEDS: ERTAPENEM SODIUM 1 GM in NORMAL SALINE 50 ML IV SCH (22:44)
[2017-05-05] MEDS: ACETAMINOPHEN 325 MG TABLET PO PRN (22:44)
[2017-05-06] MEDS ORDERED: MORPHINE SULFATE 10 MG/ML INJ ONE (04:51)
[2017-05-06] MEDS: APIXABAN 5 MG TABLET PO SCH ×2 (04:54→18:43)
[2017-05-06] MEDS: LOSARTAN POTASSIUM 50 MG TABLET PO SCH (04:55)
[2017-05-06] MEDS ORDERED: LOSARTAN POTASSIUM 50 MG TABLET PO ONE ×2 (05:15→13:24)
[2017-05-06] MEDS ORDERED: MORPHINE SULFATE 10 MG/ML INJ IV ONE (05:15)
[2017-05-06] MEDS: AMLODIPINE BESYLATE 10 MG TABLET PO SCH (09:15)
[2017-05-06] MEDS: METOPROLOL SUCCINATE 50 MG TAB.SR.24H PO SCH (09:16)
--- NOTE | 2017-05-06 13:54 | PDOC PROGRESS REPORT ---
Subjective Progress Note for:: 05/06/17 Subjective:: Patient remain on IV Nitroglycerin for severe blood pressure management. He denied any chest pain presently. No nausea or vomiting. No headache or dizziness. Tolerating oral feeding. Physical Exam Vital Signs: Temp Pulse Resp BP Pulse Ox 98.4 F 50 L 20 156/89 H 100 05/06/17 08:00 05/06/17 08:00 05/06/17 08:00 05/06/17 08:00 05/06/17 08:00 Intake & Output 05/05/17 05/06/17 05/07/17 06:59 06:59 06:59 Intake Total 2802 1743 237 Output Total 850 1900 275 Balance 1951 Weight 97.3 kg 96.6 kg General appearance: PRESENT: no acute distress, cooperative Head exam: PRESENT: atraumatic, normocephalic Eye exam: PRESENT: conjunctiva pink, EOMI, PERRLA. ABSENT: scleral icterus Mouth exam: PRESENT: moist Neck exam: PRESENT: full ROM. ABSENT: carotid bruit, JVD, lymphadenopathy, thyromegaly Respiratory exam: PRESENT: clear to auscultation robyn, decreased breath sounds - at lung bases Cardiovascular exam: PRESENT: RRR. ABSENT: diastolic murmur, rubs, systolic murmur Vascular exam: ABSENT: pallor GI/Abdominal exam: PRESENT: normal bowel sounds, soft. ABSENT: distended, guarding, mass, organolmegaly, rebound, tenderness Gentrourinary exam: PRESENT: indwelling catheter Extremities exam: ABSENT: pedal edema Neurological exam: PRESENT: alert, awake, oriented to person, oriented to place , oriented to time, oriented to situation, abnormal gait Psychiatric exam: PRESENT: appropriate affect, normal mood. ABSENT: homicidal ideation, suicidal ideation Skin exam: PRESENT: dry, intact, warm. ABSENT: cyanosis, rash Results Laboratory Results: 05/05/17 06:11 05/05/17 06:11 Impressions: Acute Abdomen Series 05/02/17 12:50 IMPRESSION: Right renal calculus. Likely mid abdominal adynamic ileus. Possible fecal impaction. Abdomen/Pelvis CT 05/02/17 15:58 IMPRESSION: Grossly nonobstructive bowel gas pattern. No free intraperitoneal air or fluid. Nonobstructive right lower pole intrarenal nonobstructive stone. 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 Assessment & Plan - Diagnosis (1) E. coli septicemia Is this a current diagnosis for this admission?: Yes Plan: See attending physician orders. (2) E. coli urinary tract infection Is this a current diagnosis for this admission?: Yes Plan: See attending physician orders. (3) Uncontrolled hypertension Is this a current diagnosis for this admission?: Yes Plan: See attending physician orders. (4) History of cerebrovascular accident Is this a current diagnosis for this admission?: Yes Plan: See attending physician orders. (5) Quadriplegia and quadriparesis Is this a current diagnosis for this admission?: Yes Plan: See attending physician orders. 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 Continue on Amlodipine at 10 mg p.o daily and Metoprolol succinate at 100 mg p.o daily. We will attempt to taper off IV Nitroglycerin infusion. Obtain CBC with diff and CMP. Continue IV Ertapenem coverage.
[2017-05-06 14:11] LABS: ABSOLUTE BASOPHILS # (AUTO) 0.2 10^3/uL (0.0-0.2); ABSOLUTE EOSINOPHILS # (AUTO) 0.4 10^3/uL (0.0-0.6); ABSOLUTE LYMPHOCYTES (AUTO) 1.1 10^3/uL (0.5-4.7); ABSOLUTE MONOCYTES (AUTO) 1.3 10^3/uL (0.1-1.4); BASOPHILS % (AUTO) 1.1 % (0-2); EOSINOPHILS % (AUTO) 2.6 % (0-6); HEMATOCRIT 31.4 % (37.9-51.0); HEMOGLOBIN 9.9 g/dL (13.5-17.0); HGB HCT DIFFERENCE -1.7; LYMPHOCYTES % (AUTO) 6.7 % (13-45); MEAN CORPUSCULAR HEMOGLOBIN 24.7 pg (27.0-33.4); MEAN CORPUSCULAR HGB CONC 31.4 g/dL (32.0-36.0); MEAN CORPUSCULAR VOLUME 79 fl (80-97); MONOCYTES % (AUTO) 7.6 % (3-13); RED BLOOD COUNT 3.99 10^6/uL (4.35-5.55); RED CELL DISTRIBUTION WIDTH 14.7 % (11.5-14.0); WHITE BLOOD COUNT 17.1 10^3/uL (4.0-10.5)
[2017-05-06 14:23] LABS: ALANINE AMINOTRANSFERASE 23 U/L (21-72); ALBUMIN 3.3 g/dL (3.5-5.0); ALKALINE PHOSPHATASE 62 U/L (38-126); ANION GAP 12 (5-19); ASPARTATE AMINO TRANSFERASE 18 U/L (17-59); BILIRUBIN,DIRECT 0.4 mg/dL (0.0-0.4); BLOOD UREA NITROGEN 7 mg/dL (7-20); CARBON DIOXIDE 23 mmol/L (22-30); CHLORIDE 103 mmol/L (98-107); CREATININE RESULT 0.65 mg/dL (0.52-1.25); GLUCOSE 134 mg/dL (75-110); POTASSIUM 3.9 mmol/L (3.6-5.0); SODIUM 137.9 mmol/L (137-145); TOTAL PROTEIN 6.5 g/dL (6.3-8.2)
[2017-05-07] MEDS: ERTAPENEM SODIUM 1 GM in NORMAL SALINE 50 ML IV SCH ×2 (00:40→21:26)
[2017-05-07] MEDS: ACETAMINOPHEN 325 MG TABLET PO PRN ×2 (01:37→21:32)
[2017-05-07] MEDS ORDERED: SIMETHICONE 80 MG TAB.CHEW PO PRN (04:11)
[2017-05-07] MEDS: APIXABAN 5 MG TABLET PO SCH ×2 (05:29→17:44)
[2017-05-07] MEDS: NITROGLYCERIN/D5W 50 MG/250 ML RTUINJ IV PRN (09:06)
[2017-05-07] MEDS: METOPROLOL SUCCINATE 50 MG TAB.SR.24H PO SCH (09:12)
[2017-05-07] MEDS: AMLODIPINE BESYLATE 10 MG TABLET PO SCH (09:12)
[2017-05-07] MEDS ORDERED: LOSARTAN POTASSIUM 50 MG TABLET PO SCH ×2 (10:00)
--- NOTE | 2017-05-07 12:06 | PDOC PROGRESS REPORT ---
Subjective Progress Note for:: 05/07/17 Subjective:: Patient remain on IV Nitroglycerin for severe blood pressure management. He denied any chest pain presently. No nausea or vomiting. No headache or dizziness. Tolerating oral feeding. Physical Exam Vital Signs: Temp Pulse Resp BP Pulse Ox 98.4 F 71 22 H 144/73 H 100 05/07/17 08:00 05/07/17 08:00 05/07/17 08:00 05/07/17 08:00 05/07/17 08:00 Intake & Output 05/06/17 05/07/17 05/08/17 06:59 06:59 06:59 Intake Total 1743 1381 Output Total 1900 1776 Balance -157 -395 Weight 96.6 kg 95.8 kg Physical Exam: General appearance: PRESENT: no acute distress, cooperative Head exam: PRESENT: atraumatic, normocephalic Eye exam: PRESENT: conjunctiva pink, EOMI, PERRLA. ABSENT: scleral icterus Mouth exam: PRESENT: moist Respiratory exam: PRESENT: clear to auscultation robyn, decreased breath sounds - at lung bases Cardiovascular exam: PRESENT: RRR. ABSENT: diastolic murmur, rubs, systolic murmur GI/Abdominal exam: PRESENT: normal bowel sounds, soft. ABSENT: distended, guarding, mass, organomegaly, rebound, tenderness Gentrourinary exam: PRESENT: indwelling catheter Extremities exam: ABSENT: pedal edema Neurological exam: PRESENT: alert, awake, oriented to person, oriented to place , oriented to time, oriented to situation, abnormal gait Psychiatric exam: PRESENT: appropriate affect, normal mood. ABSENT: homicidal ideation, suicidal ideation Skin exam: PRESENT: dry, intact, warm. ABSENT: cyanosis, rash Results Laboratory Results: 05/06/17 14:00 05/06/17 14:00 05/06/17 05/06/17 14:00 14:00 WBC 17.1 H RBC 3.99 L Hgb 9.9 L Hct 31.4 L MCV 79 L MCH 24.7 L MCHC 31.4 L RDW 14.7 H Plt Count 222 Seg Neutrophils % 82.0 H Lymphocytes % 6.7 L Monocytes % 7.6 Eosinophils % 2.6 Basophils % 1.1 Absolute Neutrophils 14.0 H Absolute Lymphocytes 1.1 Absolute Monocytes 1.3 Absolute Eosinophils 0.4 Absolute Basophils 0.2 Sodium 137.9 Potassium 3.9 Chloride 103 Carbon Dioxide 23 Anion Gap 12 BUN 7 Creatinine 0.65 Est GFR ( Amer) > 60 Est GFR (Non-Af Amer) > 60 Glucose 134 H Calcium 8.0 L Total Bilirubin 1.0 AST 18 ALT 23 Alkaline Phosphatase 62 Total Protein 6.5 Albumin 3.3 L Impressions: Acute Abdomen Series 05/02/17 12:50 IMPRESSION: Right renal calculus. Likely mid abdominal adynamic ileus. Possible fecal impaction. Abdomen/Pelvis CT 05/02/17 15:58 IMPRESSION: Grossly nonobstructive bowel gas pattern. No free intraperitoneal air or fluid. Nonobstructive right lower pole intrarenal nonobstructive stone. 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 Assessment & Plan - Diagnosis (1) E. coli septicemia Is this a current diagnosis for this admission?: Yes (2) E. coli urinary tract infection Is this a current diagnosis for this admission?: Yes (3) Uncontrolled hypertension Is this a current diagnosis for this admission?: Yes (4) History of cerebrovascular accident Is this a current diagnosis for this admission?: Yes (5) Quadriplegia and quadriparesis Is this a current diagnosis for this admission?: Yes - Time Time Spent with patient: 25-34 minutes Medications reviewed and adjusted accordingly: Yes Anticipated discharge: SNF - Inpatient Certification Based on my medical assessment, after consideration of the patient's comorbidities, presenting symptoms, or acuity I expect that the services needed warrant INPATIENT care.: Yes I certify that my determination is in accordance with my understanding of Medicare's requirements for reasonable and necessary INPATIENT services [42 CFR 412.3e].: Yes Medical Necessity: Need Close Monitoring Due to Risk of Patient Decompensation, Need For IV Fluids, Need For Continuous Telemetry Monitoring, Need for IV Antibiotics, Risk of Complication if Not Cared For in Hospital Post Hospital Care: D/C or Transfer Summary - Plan Summary Plan Summary: See covering attending physician orders.
[2017-05-07] MEDS ORDERED: LOSARTAN POTASSIUM 50 MG TABLET PO ONE (13:00)
[2017-05-07] MEDS: NYSTATIN TOPICAL POWDER 15 GM TP SCH (17:47)
[2017-05-08 04:48] LABS: ABSOLUTE BASOPHILS # (AUTO) 0.1 10^3/uL (0.0-0.2); ABSOLUTE EOSINOPHILS # (AUTO) 0.5 10^3/uL (0.0-0.6); ABSOLUTE LYMPHOCYTES (AUTO) 1.3 10^3/uL (0.5-4.7); ABSOLUTE MONOCYTES (AUTO) 2.2 10^3/uL (0.1-1.4); ABSOLUTE NEUT (AUTO) 11.7 10^3/uL (1.7-8.2); BASOPHILS % (AUTO) 0.5 % (0-2); EOSINOPHILS % (AUTO) 3.4 % (0-6); HEMATOCRIT 28.6 % (37.9-51.0); HEMOGLOBIN 9.1 g/dL (13.5-17.0); HGB HCT DIFFERENCE -1.3; LYMPHOCYTES % (AUTO) 8.4 % (13-45); MEAN CORPUSCULAR HEMOGLOBIN 25.2 pg (27.0-33.4); MEAN CORPUSCULAR HGB CONC 31.7 g/dL (32.0-36.0); MEAN CORPUSCULAR VOLUME 80 fl (80-97); MONOCYTES % (AUTO) 13.8 % (3-13); RED BLOOD COUNT 3.59 10^6/uL (4.35-5.55); RED CELL DISTRIBUTION WIDTH 14.4 % (11.5-14.0); SEGMENTED NEUTROPHILS % (AUTO) 73.9 % (42-78); WHITE BLOOD COUNT 15.8 10^3/uL (4.0-10.5)
[2017-05-08 05:04] LABS: ANION GAP 8 (5-19); BLOOD UREA NITROGEN 8 mg/dL (7-20); CALCIUM 8.1 mg/dL (8.4-10.2); CARBON DIOXIDE 25 mmol/L (22-30); CHLORIDE 104 mmol/L (98-107); CREATININE RESULT 0.76 mg/dL (0.52-1.25); GLUCOSE 88 mg/dL (75-110); POTASSIUM 3.6 mmol/L (3.6-5.0); SODIUM 136.9 mmol/L (137-145)
[2017-05-08] MEDS: APIXABAN 5 MG TABLET PO SCH ×2 (05:27→18:21)
[2017-05-08] MEDS: METOPROLOL SUCCINATE 50 MG TAB.SR.24H PO SCH (11:35)
[2017-05-08] MEDS: AMLODIPINE BESYLATE 10 MG TABLET PO SCH (11:37)
[2017-05-08] MEDS: LOSARTAN POTASSIUM 50 MG TABLET PO SCH (11:37)
[2017-05-08] MEDS: NYSTATIN TOPICAL POWDER 15 GM TP SCH ×2 (11:50→18:21)
--- NOTE | 2017-05-08 18:41 | PDOC PROGRESS REPORT ---
Subjective Progress Note for:: 05/08/17 Subjective:: Patient was seen by the bedside he was on intravenous nitroglycerin infusion for the control of blood pressure, the medication was discontinued today the blood pressure has been normal for the last few hours. There is still persistent leukocytosis, he was admitted for the management of E. coli septicemia associated with E. coli UTI. Physical Exam Vital Signs: Temp Pulse Resp BP Pulse Ox 99.2 F 69 20 157/74 H 99 05/08/17 11:59 05/08/17 14:00 05/08/17 11:59 05/08/17 11:59 05/08/17 11:59 Intake & Output 05/07/17 05/08/17 05/09/17 06:59 06:59 06:59 Intake Total 1381 831 237 Output Total 1776 500 Balance -395 331 237 Weight 95.8 kg 105.9 kg 105.9 kg General appearance: PRESENT: no acute distress Eye exam: PRESENT: PERRLA Respiratory exam: PRESENT: clear to auscultation robyn Cardiovascular exam: PRESENT: +S1, +S2 GI/Abdominal exam: PRESENT: soft Neurological exam: PRESENT: alert Results Laboratory Results: 05/08/17 03:55 05/08/17 03:55 05/08/17 05/08/17 03:55 03:55 WBC 15.8 H RBC 3.59 L Hgb 9.1 L Hct 28.6 L MCV 80 MCH 25.2 L MCHC 31.7 L RDW 14.4 H Plt Count 223 Seg Neutrophils % 73.9 Lymphocytes % 8.4 L Monocytes % 13.8 H Eosinophils % 3.4 Basophils % 0.5 Absolute Neutrophils 11.7 H Absolute Lymphocytes 1.3 Absolute Monocytes 2.2 H Absolute Eosinophils 0.5 Absolute Basophils 0.1 Sodium 136.9 L Potassium 3.6 Chloride 104 Carbon Dioxide 25 Anion Gap 8 BUN 8 Creatinine 0.76 Est GFR ( Amer) > 60 Est GFR (Non-Af Amer) > 60 Glucose 88 Calcium 8.1 L Impressions: Acute Abdomen Series 05/02/17 12:50 IMPRESSION: Right renal calculus. Likely mid abdominal adynamic ileus. Possible fecal impaction. Abdomen/Pelvis CT 05/02/17 15:58 IMPRESSION: Grossly nonobstructive bowel gas pattern. No free intraperitoneal air or fluid. Nonobstructive right lower pole intrarenal nonobstructive stone. 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 Assessment & Plan - Diagnosis (1) Sepsis Qualifiers: Sepsis type: sepsis due to unspecified organism Qualified Code(s): A41.9 - Sepsis, unspecified organism Is this a current diagnosis for this admission?: Yes (2) Hypertensive emergency Is this a current diagnosis for this admission?: Yes (3) Quadriplegia and quadriparesis Is this a current diagnosis for this admission?: Yes (4) Atrial fibrillation Qualifiers: Atrial fibrillation type: chronic Qualified Code(s): I48.2 - Chronic atrial fibrillation Is this a current diagnosis for this admission?: Yes (5) E. coli urinary tract infection Is this a current diagnosis for this admission?: Yes (6) E. coli septicemia Is this a current diagnosis for this admission?: Yes - Plan Summary Plan Summary: He will continue intravenous ertapenem for the E. coli septicemia, he will continue with triple medication for the control blood pressure
[2017-05-08] MEDS: ERTAPENEM SODIUM 1 GM in NORMAL SALINE 50 ML IV SCH (22:49)
[2017-05-08] MEDS: ACETAMINOPHEN 325 MG TABLET PO PRN (22:49)
[2017-05-09] MEDS: APIXABAN 5 MG TABLET PO SCH ×2 (05:51→17:57)
[2017-05-09] MEDS: LOSARTAN POTASSIUM 50 MG TABLET PO SCH (10:00)
[2017-05-09] MEDS: METOPROLOL SUCCINATE 50 MG TAB.SR.24H PO SCH (10:02)
[2017-05-09] MEDS: AMLODIPINE BESYLATE 10 MG TABLET PO SCH (10:03)
[2017-05-09] MEDS: NYSTATIN TOPICAL POWDER 15 GM TP SCH ×2 (10:04→17:58)
[2017-05-09 14:37] LABS: ABSOLUTE BASOPHILS # (AUTO) 0.1 10^3/uL (0.0-0.2); ABSOLUTE EOSINOPHILS # (AUTO) 0.7 10^3/uL (0.0-0.6); ABSOLUTE MONOCYTES (AUTO) 1.2 10^3/uL (0.1-1.4); ABSOLUTE NEUT (AUTO) 11.1 10^3/uL (1.7-8.2); BASOPHILS % (AUTO) 0.6 % (0-2); EOSINOPHILS % (AUTO) 4.9 % (0-6); HEMOGLOBIN 9.6 g/dL (13.5-17.0); HGB HCT DIFFERENCE -1.2; LYMPHOCYTES % (AUTO) 6.8 % (13-45); MEAN CORPUSCULAR HEMOGLOBIN 25.2 pg (27.0-33.4); MEAN CORPUSCULAR HGB CONC 32.1 g/dL (32.0-36.0); MEAN CORPUSCULAR VOLUME 78 fl (80-97); MONOCYTES % (AUTO) 8.2 % (3-13); RED BLOOD COUNT 3.83 10^6/uL (4.35-5.55); RED CELL DISTRIBUTION WIDTH 14.7 % (11.5-14.0); SEGMENTED NEUTROPHILS % (AUTO) 79.5 % (42-78)
[2017-05-09 15:01] LABS: ALANINE AMINOTRANSFERASE 17 U/L (21-72); ALKALINE PHOSPHATASE 61 U/L (38-126); ANION GAP 11 (5-19); ASPARTATE AMINO TRANSFERASE 15 U/L (17-59); BILIRUBIN,DIRECT 0.4 mg/dL (0.0-0.4); BILIRUBIN,TOTAL 1.4 mg/dL (0.2-1.3); BLOOD UREA NITROGEN 6 mg/dL (7-20); CALCIUM 8.4 mg/dL (8.4-10.2); CARBON DIOXIDE 24 mmol/L (22-30); CHLORIDE 103 mmol/L (98-107); CREATININE RESULT 0.63 mg/dL (0.52-1.25); GLUCOSE 102 mg/dL (75-110); POTASSIUM 3.8 mmol/L (3.6-5.0); SODIUM 138.3 mmol/L (137-145); TOTAL PROTEIN 6.5 g/dL (6.3-8.2)
--- NOTE | 2017-05-09 18:09 | PDOC DISCHARGE SUMMARY ---
General - Admit/Disc Date/PCP Admission Date/Primary Care Provider: 05/02/17 18:49 Discharge Date: 05/09/17 - Discharge Diagnosis (1) E. coli septicemia Is this a current diagnosis for this admission?: Yes (2) E. coli urinary tract infection Is this a current diagnosis for this admission?: Yes (3) Sepsis Is this a current diagnosis for this admission?: Yes (4) Hypertensive emergency Is this a current diagnosis for this admission?: Yes (5) Quadriplegia and quadriparesis Is this a current diagnosis for this admission?: Yes (6) Atrial fibrillation Is this a current diagnosis for this admission?: Yes - Additional Information Home Medications: Docusate Sodium [Dok] 100 mg PO DAILYP PRN 05/02/17 Polyethylene Glycol 3350 [Miralax Powder 17 gm/Packet] 17 gm PO DAILY 05/02/17 Amlodipine Besylate [Norvasc 10 mg Tablet] 10 mg PO DAILY #30 tablet 05/09/17 Apixaban [Eliquis 5 mg Tablet] 10 mg PO Q12 #60 tablet 05/09/17 Cefuroxime Axetil [Ceftin 500 mg Tablet] 500 mg PO Q12 #14 tablet 05/09/17 Doxepin HCl [Silenor] 6 mg PO QHS #30 tablet 05/09/17 Losartan Potassium [Cozaar 50 mg Tablet] 100 mg PO DAILY #30 tablet 05/09/17 Metoprolol Succinate [Toprol Xl 50 mg Tab.sr] 100 mg PO DAILY #30 tab.sr.24h Nystatin [Mycostatin Topical Powder 15 gm] 1 applic TP BID #2 bottle 05/09/17 History of Present Illness History of Present Illness: BIRDIE MOSER JR is a 56 year old male, he has a history of cerebrovascular accident with residual dysphasia and quadriparesis. He is bedbound extremely noncompliant, he came to the emergency room for evaluation of a vague abdominal pain in the right flank, he is a very poor historian, history taking was a challenge especially with the dysphasia. In the emergency room he was evaluated the hemogram revealed severe leukocytosis that was associated fever with temperature of 104. CT scan of the abdomen and pelvis with IV contrast was done it showed grossly nonobstructive bowel gas pattern, no free intraperitoneal air or fluid, nonobstructive right lower pole intrarenal nonobstructing stone. Chest x-ray was negative for any infiltrates that suggest pneumonia the urinalysis was grossly abnormal with bacteriuria and hematuria. There was also lactic acidosis the presentation is consistent with sepsis syndrome the most likely source is the urine. The blood pressure recorded was severely elevated, he has a history of hypertension poorly controlled. On examination of his skin, there is diffuse erythema with areas of pustules, the feet is crusty with diminished pedal pulses suggesting peripheral vascular disease Hospital Course Hospital Course: Patient was admitted for the management of E. coli septicemia, E. coli UTI, he was treated empirically with intravenous ertapenem. He also had hypertensive emergency, he requires intravenous nitroglycerin infusion for couple of days. Medications were adjusted for the control of his blood pressure. He has a history of chronic atrial fibrillation with bilateral CVA and quadriparesis, he is on chronic anticoagulation with Eliquis and this was continued on this admission. Physical Exam Vital Signs: Temp Pulse Resp BP Pulse Ox 99.5 F 64 19 144/62 H 99 05/09/17 15:17 05/09/17 15:17 05/09/17 15:17 05/09/17 11:50 05/09/17 15:17 Intake & Output 05/08/17 05/09/17 05/10/17 06:59 06:59 06:59 Intake Total 831 1107 237 Output Total 500 Balance 331 1107 237 Weight 105.9 kg 105 kg General appearance: PRESENT: no acute distress Eye exam: PRESENT: PERRLA Respiratory exam: PRESENT: clear to auscultation robyn Cardiovascular exam: PRESENT: +S1, +S2 GI/Abdominal exam: PRESENT: soft Neurological exam: PRESENT: alert Results Laboratory Results: 05/09/17 14:05 05/09/17 14:05 05/09/17 05/09/17 14:05 14:05 WBC 14.0 H RBC 3.83 L Hgb 9.6 L Hct 30.0 L MCV 78 L MCH 25.2 L MCHC 32.1 RDW 14.7 H Plt Count 311 Seg Neutrophils % 79.5 H Lymphocytes % 6.8 L Monocytes % 8.2 Eosinophils % 4.9 Basophils % 0.6 Absolute Neutrophils 11.1 H Absolute Lymphocytes 1.0 Absolute Monocytes 1.2 Absolute Eosinophils 0.7 H Absolute Basophils 0.1 Sodium 138.3 Potassium 3.8 Chloride 103 Carbon Dioxide 24 Anion Gap 11 BUN 6 L Creatinine 0.63 Est GFR ( Amer) > 60 Est GFR (Non-Af Amer) > 60 Glucose 102 Calcium 8.4 Total Bilirubin 1.4 H AST 15 L ALT 17 L Alkaline Phosphatase 61 Total Protein 6.5 Albumin 3.0 L Impressions: Acute Abdomen Series 05/02/17 12:50 IMPRESSION: Right renal calculus. Likely mid abdominal adynamic ileus. Possible fecal impaction. Abdomen/Pelvis CT 05/02/17 15:58 IMPRESSION: Grossly nonobstructive bowel gas pattern. No free intraperitoneal air or fluid. Nonobstructive right lower pole intrarenal nonobstructive stone. 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
[2017-05-09] MEDS ORDERED: CEFUROXIME 500 MG TABLET PO SCH (22:00)
[2017-05-09 22:41] VITALS: BP 130/61
== END 2017-05-09 22:45 | disposition home or self-care (01) | DRG 871 ==
LOC: ER 12:37 → EH 18:08 → UNDOADMIN 18:08 → EH 18:49 → 3N 20:57
PROVIDERS: ADMIT Internal Medicine; ATTEND Internal Medicine
DX: A41.51 Sepsis due to Escherichia coli [E. coli] (principal); G82.50 Quadriplegia, unspecified; N39.0 Urinary tract infection, site not specified; I16.1 Hypertensive emergency; I69.321 Dysphasia following cerebral infarction; I69.365 Other paralytic syndrome following cerebral infarction, bilateral; I48.2 Chronic atrial fibrillation; E11.9 Type 2 diabetes mellitus without complications; I25.10 Atherosclerotic heart disease of native coronary artery without angina pectoris; F32.9 Major depressive disorder, single episode, unspecified; E78.5 Hyperlipidemia, unspecified; I25.2 Old myocardial infarction; Z86.711 Personal history of pulmonary embolism; Z79.02 Long term (current) use of antithrombotics/antiplatelets; Z74.01 Bed confinement status; Z79.82 Long term (current) use of aspirin; Z79.899 Other long term (current) drug therapy; Z87.891 Personal history of nicotine dependence
CPT/HCPCS: 36415; 36591; 36600; 51702; 74022; 74177; 80048; 80053; 80076; 80202; 81001; 82565; 82570; 82803; 83036; 83605; 84156; 85025; 87040; 87077; 87086; 87088; 87186; 93005; 93010; 93306; 93925; 96365; 99285; J1335; J1650; J2270; J2543; J3370; J3490; J7030; J7060; S0119

== ENCOUNTER 2017-12-23 13:04 | Emergency (ER) | payer MEDICARE, BC ==
[2017-12-23] MEDS ORDERED: ACETAMINOPHEN 325 MG TABLET PO ONE (14:41)
--- NOTE | 2017-12-23 14:46 | ER Document Report ---
ED General - General Chief Complaint: Pain All Over Stated Complaint: WEAKNESS Time Seen by Provider: 12/23/17 14:17 Notes: Patient is a 57-year-old male, past medical history paraplegia from waist down, and by EMS with several days of difficulty breathing and generalized body aches. Patient has some dysphasia and history is difficult to obtain. He denies chest pain, fevers, cough, hemoptysis, abdominal pain, acute neurologic changes or headache TRAVEL OUTSIDE OF THE [place] IN LAST 30 DAYS: No - Related Data Allergies/Adverse Reactions: No Known Drug Allergies Allergy (Unknown, Verified 05/02/17 13:14) Past Medical History - General Information source: Patient - Social History Smoking Status: Former Smoker Family History: Reviewed & Not Pertinent Patient has suicidal ideation: No Patient has homicidal ideation: No - Past Medical History Cardiac Medical History: Reports: Hx Atrial Fibrillation, Hx Coronary Artery Disease, Hx Heart Attack, Hx Hypercholesterolemia, Hx Hypertension, Hx Pulmonary Embolism Pulmonary Medical History: Reports: Hx Bronchitis Neurological Medical History: Reports: Hx Cerebrovascular Accident Endocrine Medical History: Reports: Hx Diabetes Mellitus Type 2 Renal/ Medical History: Denies: Hx Peritoneal Dialysis Musculoskeltal Medical History: Reports Hx Muscle Weakness Psychiatric Medical History: Reports: Hx Anxiety, Hx Depression Past Surgical History: Reports: Hx Internal Defibrillator, Hx Pacemaker - Immunizations Hx Diphtheria, Pertussis, Tetanus Vaccination: - unknown Hx Pneumococcal Vaccination: 09/11/15 Review of Systems - Review of Systems Notes: REVIEW OF SYSTEMS: CONSTITUTIONAL: -fevers, -chills EENT: -eye pain, -difficulty swallowing, -nasal congestion CARDIOVASCULAR: -chest pain, -syncope. RESPIRATORY: -cough, +SOB GASTROINTESTINAL: -abdominal pain, -nausea, -vomiting, -diarrhea GENITOURINARY: -dysuria, -hematuria MUSCULOSKELETAL: -back pain, -neck pain SKIN: -rash or skin lesions. HEMATOLOGIC: -easy bruising or bleeding. LYMPHATIC: -swollen, enlarged glands. NEUROLOGICAL: -altered mental status or loss of consciousness, -headache PSYCHIATRIC: -anxiety, -depression. ALL OTHER SYSTEMS REVIEWED AND NEGATIVE. Physical Exam - Vital signs Vitals: Resp 19 12/23/17 13:15 - Notes Notes: PHYSICAL EXAMINATION: GENERAL: Well-appearing, well-nourished and in no acute distress. HEAD: Atraumatic, normocephalic. EYES: Pupils equal round and reactive to light, extraocular movements intact, sclera anicteric, conjunctiva are normal. ENT: nares patent, oropharynx clear without exudates. Moist mucous membranes. NECK: Normal range of motion, supple without lymphadenopathy LUNGS: Breath sounds clear to auscultation bilaterally and equal. No wheezes rales or rhonchi. HEART: Regular rate and rhythm without murmurs ABDOMEN: Soft, nontender, normoactive bowel sounds. No guarding, no rebound. No masses appreciated. EXTREMITIES: Normal range of motion, no pitting or edema. No cyanosis. NEUROLOGICAL: Cranial nerves grossly intact. Dysarthria (chronic). Chronic paralysis of legs. PSYCH: Normal mood, normal affect. SKIN: Warm, Dry, normal turgor, no rashes or lesions noted. Course - Re-evaluation Re-evalutation: Patient appears well and is in no acute distress. His blood work is unremarkable, chest x-ray does not show any acute findings and patient is oxygenating fine on room air. He is in no acute respiratory distress. Patient is also not found to be in rhabdo. Provided him with Tylenol and anti- inflammatories with relief of his myalgias. Instructed to follow with his primary care physician for further evaluation and treatment. - Vital Signs Vital signs: Temp Pulse Resp BP Pulse Ox 98.7 F 20 156/85 H 100 12/23/17 19:44 12/23/17 18:08 12/23/17 18:08 12/23/17 18:08 - Laboratory Result Diagrams: 12/23/17 15:29 12/23/17 15:29 Laboratory results interpreted by me: 12/23/17 12/23/17 12/23/17 15:29 15:29 16:12 Hgb 11.2 L Hct 35.3 L MCV 78 L MCH 24.8 L MCHC 31.8 L RDW 14.5 H Chloride 108 H AST 16 L ALT 18 L Urine Protein 100 H Urine Blood MODERATE H Urine Urobilinogen 4.0 H Ur Leukocyte Esterase TRACE H Discharge - Discharge Clinical Impression: Myalgia Dyspnea Qualifiers: Dyspnea type: unspecified Qualified Code(s): R06.00 - Dyspnea, unspecified Condition: Stable Disposition: HOME, SELF-CARE Additional Instructions: You may take Tylenol and Motrin for any body aches. Follow-up with your primary care physician for further evaluation and treatment. SHORTNESS OF BREATH OR DYSPNEA: You were evaluated for shortness of breath, or dyspnea. Dyspnea has many causes, and some are more serious than others. Sometimes it's impossible to diagnose the cause of dyspnea with the tests that are available on an emergency basis. Based on our evaluation today, you do not need hospitalization now. We found no evidence of pneumonia, collapsed lung, blood clots in the lung, tumors , or heart failure. Causes of non-specific dyspnea can include asthma or bronchospasm, hyperventilation, emotional distress, heart disease, emphysema, fibrosis of the lung, and stiffness of the chest wall. In healthy individuals with a single episode, it's sometimes reasonable to do nothing but wait to see if the problem occurs again. Additional tests used to evaluate dyspnea can include cardiac stress testing, echocardiography, pulmonary function testing, CAT scan of the chest, bronchoscopy or pulmonary biopsy. Return if shortness of breath persists or worsens, or if you develop chest pain, fever, cough, confusion, or fainting. NORMAL EXAM AND WORKUP: At this time, your examination and workup show no significant abnormality. No significant abnormal physical findings were noted. All laboratory, EKG, and imaging (x-ray, CT scans, ultrasound) studies that were ordered show no significant abnormality. Although your examination and all studies that were ordered showed no significant abnormal finding, there are no examinations and no studies that are 100% accurate. There is always the possibility that some abnormality could exist and not be detected with physical examination or within the limits and capabilities of laboratory and other studies. You should return or follow up as you were instructed on your visit today for further evaluation if your symptoms do not resolve. FOLLOW-UP CARE: If you have been referred to a physician for follow-up care, call the physician s office for an appointment as you were instructed or within the next two days. If you experience worsening or a significant change in your symptoms, notify the physician immediately or return to the Emergency Department at any time for re-evaluation. Myalagia (Muscle Pain) Myalgia is pain in the muscles. We use the word myalgia to describe muscle pain where there's no history of injury, no known muscle disease, and the muscles are normal to examination. Myalgias can be a symptom of an acute illness , such as influenza, hepatitis, or any viral illness, especially with fever. Sometimes the muscle pain comes before any other symptoms. Myalgia can also be an early symptom of inflammatory muscle disease, such as lupus. If myalgia is accompanied by an acute illness that explains the muscle pain , then no further testing needs to be done. When there's no clear reason for the pain, tests may be done to see if there's an inflammatory or other disease of the muscles. The usual treatment for myalgias is anti-inflammatory medication, such as ibuprofen. Muscle aches may be soothed with a heating pad or hot compress. If muscles remain painful for more than a few days, you'll need testing and followup. Return if a muscle becomes swollen, red, or severely painful. Forms: Elevated Blood Pressure
--- NOTE | 2017-12-23 15:23 | RADIOLOGY REPORT (SQ) ---
EXAM DESCRIPTION: CHEST SINGLE VIEW COMPLETED DATE/TIME: 12/23/2017 3:12 pm REASON FOR STUDY: SOB COMPARISON: 03/10/2016 EXAM PARAMETERS: NUMBER OF VIEWS: One view. TECHNIQUE: Single frontal radiographic view of the chest acquired. RADIATION DOSE: NA LIMITATIONS: None. FINDINGS: LUNGS AND PLEURA: No opacities, masses or pneumothorax. No pleural effusion. MEDIASTINUM AND HILAR STRUCTURES: No masses. Contour normal. HEART AND VASCULAR STRUCTURES: Heart normal in size. Normal vasculature. BONES: No acute findings. HARDWARE: Stable position of the right chest wall injection catheter. OTHER: No other significant finding. IMPRESSION: NO ACUTE RADIOGRAPHIC FINDING IN THE CHEST. TECHNICAL DOCUMENTATION: JOB ID: [id number] [employer]- All Rights Reserved Reading location - IP/workstation name: [email or web address]
[2017-12-23 15:43] LABS: ABSOLUTE BASOPHILS # (AUTO) 0.1 10^3/uL (0.0-0.2); ABSOLUTE EOSINOPHILS # (AUTO) 0.2 10^3/uL (0.0-0.6); ABSOLUTE LYMPHOCYTES (AUTO) 1.5 10^3/uL (0.5-4.7); ABSOLUTE MONOCYTES (AUTO) 0.9 10^3/uL (0.1-1.4); ABSOLUTE NEUT (AUTO) 5.7 10^3/uL (1.7-8.2); BASOPHILS % (AUTO) 1.1 % (0-2); EOSINOPHILS % (AUTO) 2.7 % (0-6); HEMATOCRIT 35.3 % (37.9-51.0); HEMOGLOBIN 11.2 g/dL (13.5-17.0); LYMPHOCYTES % (AUTO) 17.6 % (13-45); MEAN CORPUSCULAR HEMOGLOBIN 24.8 pg (27.0-33.4); MEAN CORPUSCULAR HGB CONC 31.8 g/dL (32.0-36.0); MEAN CORPUSCULAR VOLUME 78 fl (80-97); MONOCYTES % (AUTO) 10.6 % (3-13); PLATELET COUNT 364 10^3/uL (150-450); RED BLOOD COUNT 4.53 10^6/uL (4.35-5.55); RED CELL DISTRIBUTION WIDTH 14.5 % (11.5-14.0); TOTAL CELLS COUNTED % (AUTO) 100 %; WHITE BLOOD COUNT 8.4 10^3/uL (4.0-10.5)
[2017-12-23 16:02] LABS: ALANINE AMINOTRANSFERASE 18 U/L (21-72); ALBUMIN 3.6 g/dL (3.5-5.0); ALKALINE PHOSPHATASE 68 U/L (38-126); ANION GAP 10 (5-19); ASPARTATE AMINO TRANSFERASE 16 U/L (17-59); BILIRUBIN,DIRECT 0.2 mg/dL (0.0-0.4); BILIRUBIN,TOTAL 0.9 mg/dL (0.2-1.3); BLOOD UREA NITROGEN 16 mg/dL (7-20); CALCIUM 8.8 mg/dL (8.4-10.2); CARBON DIOXIDE 26 mmol/L (22-30); CHLORIDE 108 mmol/L (98-107); CREATINE KINASE 68 U/L (55-170); GLUCOSE 95 mg/dL (75-110); POTASSIUM 3.6 mmol/L (3.6-5.0); SODIUM 144.4 mmol/L (137-145)
[2017-12-23 16:54] LABS: APPEARANCE,URINE CLEAR; BILIRUBIN,URINE NEGATIVE (NEGATIVE); COLOR,URINE YELLOW; GLUCOSE, URINE NEGATIVE (NEGATIVE); KETONES,URINE NEGATIVE (NEGATIVE); LEUKOCYTE ESTERASE,URINE TRACE (NEGATIVE); NITRITE,URINE NEGATIVE (NEGATIVE); PROTEIN,URINE 100 mg/dL (NEGATIVE); URINE SPECIFIC GRAVITY 1.016
[2017-12-23 17:23] VITALS: BP 156/85
[2017-12-23] MEDS ORDERED: NAPROXEN 250 MG TABLET PO ONE (17:30)
--- NOTE | 2017-12-23 17:39 | EKG REPORT ---
SEVERITY:- ABNORMAL ECG - SINUS RHYTHM PROBABLE LEFT ATRIAL ABNORMALITY REPOL ABNRM SUGGESTS ISCHEMIA, ANT-LAT LEADS BORDERLINE PROLONGED QT INTERVAL : Confirmed by: Michael Sow MD 23-Dec-2017 17:38:59
== END 2017-12-23 19:44 | disposition home or self-care (01) ==
LOC: ER 13:04
DX: M79.1 Myalgia (principal); R06.00 Dyspnea, unspecified; R53.1 Weakness; R47.02 Dysphasia; G82.20 Paraplegia, unspecified; I48.91 Unspecified atrial fibrillation; I25.10 Atherosclerotic heart disease of native coronary artery without angina pectoris; E78.00 Pure hypercholesterolemia, unspecified; I10 Essential (primary) hypertension; I25.2 Old myocardial infarction; Z87.891 Personal history of nicotine dependence; Z86.73 Personal history of transient ischemic attack (TIA), and cerebral infarction without residual deficits; E11.9 Type 2 diabetes mellitus without complications; Z95.0 Presence of cardiac pacemaker
CPT/HCPCS: 93005; 36591; 99285; 36415; 82550; 85025; 80053; 81001; 71045; 93010; A9270 ×2